=== PATIENT | male | born 1975 | race African-American/Black ===

== ENCOUNTER 2016-12-21 16:38 | Emergency (ER) | payer MEDICAID ==
--- NOTE | 2016-12-21 17:09 | ER Document Report ---
ED Medical Screen (RME) - General Stated Complaint: BODYACHES Time seen by provider: 17:09 Mode of Arrival: Ambulatory Information source: Patient Notes: 41-year-old male that has been sick for several days with cough. Is complaining of a headache neck pain and back pain today he vomited once this morning. There is no diarrhea. no chest pain or SOB. I have greeted and performed a rapid initial assessment of this patient. A comprehensive ED assessment, evaluation of the patient, analysis of test results , and completion of the medical decision making process will be conducted by additional ED providers. TRAVEL OUTSIDE OF THE [place] IN LAST 30 DAYS: No - Related Data Allergies/Adverse Reactions: hydrocodone [Hydrocodone] Allergy (Verified 12/21/16 17:04) Past Medical History GI Medical History: Reports: Hx Crohn's Disease, Hx Ulcerative Colitis Musculoskeltal Medical History: Reports Hx Musculoskeletal Trauma - Ankle with ORIF and finger Traumatic Medical History: Reports: Hx Fractures - Finger and ankle Past Surgical History: Reports: Hx Abdominal Surgery, Hx Bowel Surgery - For Crohn's, Hx Orthopedic Surgery - ORIF to ankle - Immunizations Hx Diphtheria, Pertussis, Tetanus Vaccination: Yes Physical Exam - Vital signs Vitals: Temp Pulse Resp BP Pulse Ox 97.8 F 105 H 20 132/76 H 99 12/21/16 17:06 12/21/16 17:06 12/21/16 17:06 12/21/16 17:06 12/21/16 17:06 Course - Vital Signs Vital signs: Temp Pulse Resp BP Pulse Ox 97.8 F 105 H 20 132/76 H 99 12/21/16 17:06 12/21/16 17:06 12/21/16 17:06 12/21/16 17:06 12/21/16 17:06
[2016-12-21] MEDS ORDERED: ACETAMINOPHEN 325 MG TABLET PO ONE (17:10)
[2016-12-21] MEDS ORDERED: ONDANSETRON 4 MG TAB.RAPDIS PO ONE (17:10)
[2016-12-21 18:15] LABS: APPEARANCE,URINE SLIGHTLY-CLOUDY; BILIRUBIN,URINE NEGATIVE (NEGATIVE); GLUCOSE, URINE NEGATIVE (NEGATIVE); KETONES,URINE NEGATIVE (NEGATIVE); LEUKOCYTE ESTERASE,URINE SMALL (NEGATIVE); NITRITE,URINE NEGATIVE (NEGATIVE); PROTEIN,URINE 30 mg/dL (NEGATIVE); URINE SPECIFIC GRAVITY 1.032; UROBILINOGEN,URINE NEGATIVE mg/dL (<2.0)
[2016-12-21 19:17] LABS: ABSOLUTE BASOPHILS # (AUTO) 0.1 10^3/uL (0.0-0.2); ABSOLUTE LYMPHOCYTES (AUTO) 1.6 10^3/uL (0.5-4.7); ABSOLUTE MONOCYTES (AUTO) 1.2 10^3/uL (0.1-1.4); ABSOLUTE NEUT (AUTO) 7.8 10^3/uL (1.7-8.2); BASOPHILS % (AUTO) 1.2 % (0-2); EOSINOPHILS % (AUTO) 0.3 % (0-6); HEMATOCRIT 43.7 % (37.9-51.0); HEMOGLOBIN 14.4 g/dL (13.5-17.0); HGB HCT DIFFERENCE -0.5; LYMPHOCYTES % (AUTO) 14.9 % (13-45); MEAN CORPUSCULAR VOLUME 88 fl (80-97); MONOCYTES % (AUTO) 11.3 % (3-13); RED BLOOD COUNT 4.98 10^6/uL (4.35-5.55); RED CELL DISTRIBUTION WIDTH 17.3 % (11.5-14.0); SEGMENTED NEUTROPHILS % (AUTO) 72.3 % (42-78); WHITE BLOOD COUNT 10.7 10^3/uL (4.0-10.5)
[2016-12-21] MEDS ORDERED: KETOROLAC TROMETHAMINE INJ/PF 30 MG/1 ML SDV IV ONE (20:02)
[2016-12-21] MEDS ORDERED: NORMAL SALINE 1000 ML 2,000 ML IV ONE (20:02)
--- NOTE | 2016-12-21 20:03 | ER Document Report ---
ED General - General Chief Complaint: Vomiting Stated Complaint: BODYACHES Mode of Arrival: Ambulatory Notes: Patient is a 41-year-old male without past medical history who presents with 2 days of diffuse body aches, arthralgias, headache, and fever. Describes the symptoms as being severe and constant since onset. Notes he's had diarrhea and nausea. Multiple sick contacts with similar illness that have been apparently diagnosed with influenza. He has not done anything to treat his symptoms and nothing worsens the symptoms. He has not seen his primary care physician regarding today's concerns. He denies a recent history of similar symptoms in the past. Denies any weakness, numbness or confusion. Has been able tolerate oral intake without difficulty. Denies any neck pain. TRAVEL OUTSIDE OF THE [place] IN LAST 30 DAYS: No - Related Data Allergies/Adverse Reactions: hydrocodone [Hydrocodone] Allergy (Verified 12/21/16 17:04) Past Medical History - General Information source: Patient - Social History Smoking Status: Former Smoker Chew tobacco use (# tins/day): No Frequency of alcohol use: None Drug Abuse: None Family History: CAD Patient has suicidal ideation: No Patient has homicidal ideation: No Renal/ Medical History: Denies: Hx Peritoneal Dialysis GI Medical History: Reports: Hx Crohn's Disease, Hx Ulcerative Colitis Musculoskeltal Medical History: Reports Hx Musculoskeletal Trauma - Ankle with ORIF and finger Traumatic Medical History: Reports: Hx Fractures - Finger and ankle Past Surgical History: Reports: Hx Abdominal Surgery, Hx Bowel Surgery - For Crohn's, Hx Orthopedic Surgery - ORIF to ankle - Immunizations Hx Diphtheria, Pertussis, Tetanus Vaccination: Yes Review of Systems - Review of Systems Notes: Constitutional: Negative for fever. HENT: Negative for sore throat. Eyes: Negative for visual changes. Cardiovascular: Negative for chest pain. Respiratory: Negative for shortness of breath. Gastrointestinal: Negative for abdominal pain, positive for diarrhea and nausea Genitourinary: Negative for dysuria. Musculoskeletal: Positive for body aches Skin: Negative for rash. Neurological: Negative for headaches, weakness or numbness. 10 point ROS negative except as marked above and in HPI. Physical Exam - Vital signs Vitals: Temp Pulse Resp BP Pulse Ox 97.8 F 105 H 20 132/76 H 99 12/21/16 17:06 12/21/16 17:06 12/21/16 17:06 12/21/16 17:06 12/21/16 17:06 Interpretation: Tachycardic Notes: PHYSICAL EXAMINATION: GENERAL: Appears mildly uncomfortable but in no acute distress HEAD: Atraumatic, normocephalic. EYES: Pupils equal round and reactive to light, extraocular movements intact, sclera anicteric, conjunctiva are normal. ENT: nares patent, oropharynx clear without exudates. Dry mucous membranes. NECK: Normal range of motion, supple without lymphadenopathy LUNGS: Breath sounds clear to auscultation bilaterally and equal. No wheezes rales or rhonchi. HEART: Regular tachycardia without murmurs ABDOMEN: Soft, nontender, normoactive bowel sounds. No guarding, no rebound. No masses appreciated. EXTREMITIES: Normal range of motion, no pitting or edema. No cyanosis. NEUROLOGICAL: No focal neurological deficits. Moves all extremities spontaneously and on command. PSYCH: Normal mood, normal affect. SKIN: Warm, Dry, normal turgor, no rashes or lesions noted. Course - Re-evaluation Re-evalutation: 12/21/16 20:02 Patient presents with cough, vomiting, diarrhea, and fever at home consistent with a diagnosis of a viral infection possibly influenza. Patient is overall well in appearance, in no acute distress. Lung sounds clear. Able to tolerate oral intake without difficulty here in the emergency department. Do not suspect an acute pneumonia, meningitis, strep pharyngitis, or any other acute life-threatening pathology based on reassuring evaluation, history and vitals. After risks and benefits conversation with the patient regarding the use of Tamiflu, they have elected to use supportive care without Tamiflu formal influenza testing based on concerns about lack of efficacy as well as the side effect profile. At this time will discharge with return precautions and follow- up recommendations. Verbal discharge instructions given a the bedside and opportunity for questions given. Medication warnings reviewed. Patient is in agreement with this plan and has verbalized understanding of return precautions and the need for primary care follow-up in the next 24-72 hours. Of note, patient did have pyuria but I'm uncertain as to why a urinalysis is obtained in triage patient denies any dysuria or flank pain to suggest a urinary tract infection. Will therefore not treat. - Vital Signs Vital signs: Temp Pulse Resp BP Pulse Ox 97.8 F 84 20 118/68 100 12/22/16 00:44 12/22/16 00:44 12/22/16 00:44 12/22/16 00:44 12/22/16 00:44 - Laboratory Result Diagrams: 12/21/16 18:52 12/21/16 21:21 Laboratory results interpreted by me: 12/21/16 12/21/16 12/21/16 17:54 18:52 21:21 WBC 10.7 H RDW 17.3 H Chloride 108 H Urine Protein 30 H Ur Leukocyte Esterase SMALL H Urine Ascorbic Acid 40 H Discharge - Discharge Clinical Impression: Myalgia, Cough Condition: Good Disposition: HOME, SELF-CARE Additional Instructions: Your symptoms are most consistent with the flu. There is no treatment that is effective for this diagnosis other than supportive care at home. This includes drinking plenty of fluids, using Tylenol or ibuprofen as needed for fever and discomfort, and Zofran as needed for nausea and vomiting. Please follow closely with you primary care physician the next 1-2 days regarding this diagnosis. Return to the emergency department immediately if you began to have persistent vomiting prevents you from being able to keep fluids down for more than 12 hours, you pass out, you began having difficulty breathing, you become confused, or you have any other symptoms that are worrisome to you. Referrals: FILIBERTO GARCIA MD [Primary Care Provider] - Follow up in 3-5 days
[2016-12-21 21:47] LABS: ALANINE AMINOTRANSFERASE 44 U/L (21-72); ALBUMIN 4.1 g/dL (3.5-5.0); ALKALINE PHOSPHATASE 74 U/L (38-126); ANION GAP 9 (5-19); ASPARTATE AMINO TRANSFERASE 19 U/L (17-59); BILIRUBIN,TOTAL 0.7 mg/dL (0.2-1.3); BLOOD UREA NITROGEN 14 mg/dL (7-20); CALCIUM 9.2 mg/dL (8.4-10.2); CARBON DIOXIDE 23 mmol/L (22-30); CHLORIDE 108 mmol/L (98-107); CREATININE RESULT 1.21 mg/dL (0.52-1.25); GLUCOSE 96 mg/dL (75-110); POTASSIUM 3.8 mmol/L (3.6-5.0); SODIUM 140.4 mmol/L (137-145); TOTAL PROTEIN 7.4 g/dL (6.3-8.2)
[2016-12-21] MEDS ORDERED: OXYCODONE HCL IR 5 MG TABLET PO ONE (22:31)
[2016-12-22] MEDS ORDERED: ONDANSETRON ODT 4 MG TAB (6 TAB/DSPK) PO PRN (00:15)
[2016-12-22 00:46] VITALS: BP 118/68
== END 2016-12-22 00:22 | disposition home or self-care (01) ==
LOC: ER 16:38
DX: M79.1 Myalgia (principal); R05 Cough; R11.10 Vomiting, unspecified; R51 Headache; R50.9 Fever, unspecified; Z88.6 Allergy status to analgesic agent; Z87.891 Personal history of nicotine dependence
CPT/HCPCS: 99284; 96374; 36415; 83690; 85025; 80053; 81001; J3490 ×2; S0119; J1885

== ENCOUNTER 2017-02-18 11:20 | Emergency (ER) | payer MEDICAID ==
[2017-02-18] MEDS ORDERED: ONDANSETRON 4 MG TAB.RAPDIS SL ONE (12:21)
[2017-02-18] MEDS ORDERED: OXYCODONE-ACETAMINOPHEN 5-325 MG TABLET PO ONE (12:21)
--- NOTE | 2017-02-18 12:21 | ER Document Report ---
ED Medical Screen (RME) - General Chief Complaint: Abdominal Pain Stated Complaint: ABDOMINAL PAIN, LEFT KNEE PAIN TRAVEL OUTSIDE OF THE [place] IN LAST 30 DAYS: No - HPI Patient complains to provider of: abdominal pain, left knee pain Onset: Other - pain to right abdomen x 3 days, no nausea, vomiting, no fever/ chill, h/o crohns with colostomy x 1.5 years, [facility] Thompson pain to left knee 2-3 days, possible injury, swelling pain, hurts to walk or with movement Onset/Duration: Gradual Quality of pain: Achy Severity: Moderate Pain Level: 4 Associated Symptoms: Nausea, Other - lightheaded. denies: Diarrhea, Vomiting Exacerbated by: Movement Relieved by: Denies Similar symptoms previously: Yes Recently seen / treated by doctor: No - Related Data Smoking: Quit less than 1 year Allergies/Adverse Reactions: hydrocodone [Hydrocodone] Allergy (Verified 02/18/17 11:27) Past Medical History Renal/ Medical History: Denies: Hx Peritoneal Dialysis GI Medical History: Reports: Hx Crohn's Disease, Hx Ulcerative Colitis Musculoskeltal Medical History: Reports Hx Musculoskeletal Trauma - Ankle with ORIF and finger Traumatic Medical History: Reports: Hx Fractures - Finger and ankle Past Surgical History: Reports: Hx Abdominal Surgery, Hx Bowel Surgery - For Crohn's, Hx Orthopedic Surgery - ORIF to ankle - Immunizations Hx Diphtheria, Pertussis, Tetanus Vaccination: Yes Physical Exam - Vital signs Vitals: Temp Pulse Resp BP Pulse Ox 98.4 F 83 18 114/66 98 02/18/17 11:28 02/18/17 11:28 02/18/17 11:28 02/18/17 11:28 02/18/17 11:28 Course - Vital Signs Vital signs: Temp Pulse Resp BP Pulse Ox 98.4 F 83 18 114/66 98 02/18/17 11:28 02/18/17 11:28 02/18/17 11:28 02/18/17 11:28 02/18/17 11:28
[2017-02-18 12:50] LABS: ABSOLUTE BASOPHILS # (AUTO) 0.1 10^3/uL (0.0-0.2); ABSOLUTE EOSINOPHILS # (AUTO) 0.4 10^3/uL (0.0-0.6); ABSOLUTE LYMPHOCYTES (AUTO) 1.9 10^3/uL (0.5-4.7); ABSOLUTE MONOCYTES (AUTO) 1.3 10^3/uL (0.1-1.4); ABSOLUTE NEUT (AUTO) 5.1 10^3/uL (1.7-8.2); BASOPHILS % (AUTO) 0.8 % (0-2); EOSINOPHILS % (AUTO) 4.1 % (0-6); HEMOGLOBIN 14.6 g/dL (13.5-17.0); HGB HCT DIFFERENCE -1.2; LYMPHOCYTES % (AUTO) 21.8 % (13-45); MEAN CORPUSCULAR HEMOGLOBIN 28.9 pg (27.0-33.4); MEAN CORPUSCULAR HGB CONC 32.5 g/dL (32.0-36.0); MEAN CORPUSCULAR VOLUME 89 fl (80-97); MONOCYTES % (AUTO) 14.7 % (3-13); RED BLOOD COUNT 5.05 10^6/uL (4.35-5.55); SEGMENTED NEUTROPHILS % (AUTO) 58.6 % (42-78); WHITE BLOOD COUNT 8.6 10^3/uL (4.0-10.5)
[2017-02-18 12:54] LABS: APPEARANCE,URINE CLEAR; BILIRUBIN,URINE NEGATIVE (NEGATIVE); GLUCOSE, URINE NEGATIVE (NEGATIVE); KETONES,URINE NEGATIVE (NEGATIVE); LEUKOCYTE ESTERASE,URINE NEGATIVE (NEGATIVE); NITRITE,URINE NEGATIVE (NEGATIVE); PROTEIN,URINE NEGATIVE (NEGATIVE); URINE SPECIFIC GRAVITY 1.016; UROBILINOGEN,URINE NEGATIVE mg/dL (<2.0)
[2017-02-18 13:04] LABS: ALANINE AMINOTRANSFERASE 44 U/L (21-72); ALBUMIN 4.3 g/dL (3.5-5.0); ALKALINE PHOSPHATASE 74 U/L (38-126); ANION GAP 13 (5-19); ASPARTATE AMINO TRANSFERASE 25 U/L (17-59); BILIRUBIN,DIRECT 0.3 mg/dL (0.0-0.4); BILIRUBIN,TOTAL 0.7 mg/dL (0.2-1.3); BLOOD UREA NITROGEN 12 mg/dL (7-20); CALCIUM 9.6 mg/dL (8.4-10.2); CARBON DIOXIDE 23 mmol/L (22-30); CHLORIDE 106 mmol/L (98-107); CREATININE RESULT 1.01 mg/dL (0.52-1.25); GLUCOSE 100 mg/dL (75-110); LIPASE 49.6 U/L (23-300); POTASSIUM 4.6 mmol/L (3.6-5.0); SODIUM 141.7 mmol/L (137-145)
--- NOTE | 2017-02-18 14:35 | ER Document Report ---
ED GI/ - General Chief Complaint: Abdominal Pain Stated Complaint: ABDOMINAL PAIN, LEFT KNEE PAIN Time seen by provider: 14:25 Mode of Arrival: Ambulatory Information source: Patient Notes: 41-year-old male presents to ED for right abdominal pain since Friday and left knee pain since Friday. He has a history of Crohn's and ulcerative colitis. He states he bumped his knee getting out of bed on Friday. He states he did have a primary doctor Dr. Abreu in [place] but he has not been there in several months. He has a colostomy for the last 1-1/2 years. TRAVEL OUTSIDE OF THE [place] IN LAST 30 DAYS: No - HPI Patient complains to provider of: Abdominal pain, Other - Left knee pain Onset: Other - See above Timing/Duration: Gradual Quality of pain: Sharp, Throbbing - To the knee Severity at maximum: Moderate Severity in ED: Moderate Pain Level: 3 Location: Other - Generalized Associated symptoms: Other - Left knee pain Exacerbated by: Movement, Walking Relieved by: Denies Similar symptoms previously: Yes Recently seen / treated by doctor: No - Related Data Allergies/Adverse Reactions: hydrocodone [Hydrocodone] Allergy (Verified 02/18/17 11:27) Past Medical History - General Information source: Patient - Social History Smoking Status: Former Smoker Chew tobacco use (# tins/day): No Frequency of alcohol use: Rare Drug Abuse: None Lives with: Alone Family History: CAD Patient has suicidal ideation: No Patient has homicidal ideation: No - Past Medical History Cardiac Medical History: Reports: None Pulmonary Medical History: Reports: None EENT Medical History: Reports: None Neurological Medical History: Reports: None Endocrine Medical History: Reports: None Renal/ Medical History: Reports: None Malignancy Medical History: Reports None GI Medical History: Reports: Hx Crohn's Disease, Hx Ulcerative Colitis Musculoskeltal Medical History: Reports Hx Musculoskeletal Trauma - Ankle with ORIF and finger Skin Medical History: Reports None Psychiatric Medical History: Reports: None Traumatic Medical History: Reports: Hx Fractures - Finger and ankle Infectious Medical History: Reports: None Past Surgical History: Reports: Hx Abdominal Surgery, Hx Bowel Surgery - For Crohn's, Hx Orthopedic Surgery - ORIF to ankle - Immunizations Hx Diphtheria, Pertussis, Tetanus Vaccination: Yes Review of Systems - Review of Systems Constitutional: No symptoms reported EENT: No symptoms reported Cardiovascular: No symptoms reported Respiratory: No symptoms reported Gastrointestinal: Abdominal pain Genitourinary: No symptoms reported Male Genitourinary: No symptoms reported Musculoskeletal: Other - Left knee pain Skin: No symptoms reported Hematologic/Lymphatic: No symptoms reported Neurological/Psychological: No symptoms reported -: Yes All other systems reviewed and negative Physical Exam - Vital signs Vitals: Temp Pulse Resp BP Pulse Ox 98.4 F 83 18 114/66 98 02/18/17 11:28 02/18/17 11:28 02/18/17 11:28 02/18/17 11:28 02/18/17 11:28 Interpretation: Normal - General General appearance: Appears well, Alert - HEENT Head: Normocephalic, Atraumatic Eyes: Normal Pupils: PERRL - Respiratory Respiratory status: No respiratory distress Chest status: Nontender Breath sounds: Normal Chest palpation: Normal - Cardiovascular Rhythm: Regular Heart sounds: Normal auscultation Murmur: No - Abdominal Inspection: Normal Distension: No distension Bowel sounds: Normal Tenderness: Tender, Other - Colostomy Organomegaly: No organomegaly - Back Back: Normal, Nontender - Extremities General upper extremity: Normal inspection, Nontender, Normal color, Normal ROM , Normal temperature General lower extremity: Normal inspection, Normal color, Normal temperature. No: Krys's sign Knee: Tender, Pain with ROM Calf: Normal, Nontender Ankle: Normal, Nontender - Neurological Neuro grossly intact: Yes Cognition: Normal Orientation: AAOx4 [place] Coma Scale Eye Opening: Spontaneous [place] Coma Scale Verbal: Oriented [place] Coma Scale Motor: Obeys Commands [place] Coma Scale Total: 15 Speech: Normal Motor strength normal: LUE, RUE, LLE, RLE Sensory: Normal - Psychological Associated symptoms: Normal affect, Normal mood - Skin Skin Temperature: Warm Skin Moisture: Dry Skin Color: Normal Course - Vital Signs Vital signs: Temp Pulse Resp BP Pulse Ox 97.7 F 75 18 107/60 96 02/18/17 16:07 02/18/17 16:07 02/18/17 16:07 02/18/17 16:07 02/18/17 16:07 - Laboratory Result Diagrams: 02/18/17 12:10 02/18/17 12:10 Laboratory results interpreted by me: 02/18/17 02/18/17 12:10 12:10 RDW 17.0 H Monocytes % 14.7 H Urine Ascorbic Acid 40 H - Diagnostic Test Radiology reviewed: Image reviewed, Reports reviewed Discharge - Discharge Clinical Impression: Abdominal pain in male, Hx of Crohn's disease Condition: Stable Disposition: HOME, SELF-CARE Additional Instructions: ABDOMINAL PAIN: There are many causes of abdominal pain. Pain can mean a serious problem requiring surgery (such as appendicitis). It can also be an innocent problem that goes away on its own (such as a viral infection). Often, time must pass to determine the cause of pain. The physician does not feel that hospitalization is necessary, at present. Things may change within the next 24 hours. Call the doctor or come back for re- examination if any problems occur, such as: (1) Pain that becomes more severe, steady, or becomes concentrated in one specific area. Also, pain that is more severe with movement or coughing. (2) Vomiting that persists or becomes more frequent. (3) Blood in the vomitus, urine, or bowel movements. Blood in the stool may have a tarry or black appearance. (4) Shaking chills or fever greater than 100 degrees F. (5) The abdomen becomes more distended or swollen. (6) Bowel movements cease. (7) Failure to improve as expected. NORMAL EXAM AND WORKUP: At this time, your examination and workup show no significant abnormality. No significant abnormal physical findings are noted. All laboratory, EKG, and imaging (x-ray, CT scans, ultrasound) studies that were ordered show no significant abnormality. Although your examination and all studies that were ordered showed no significant abnormal finding, there are no examinations and no studies that are 100% accurate. There is always the possibility that some abnormality could exist and not be detected with physical examination or within the limits and capabilities of laboratory and other studies. You should return or follow up as you were instructed on your visit today for further evaluation if your symptoms do not resolve. CONTUSION: Your injury has resulted in a contusion -- a crushing of the deep tissues. No injury to important structures was detected during the physician's exam. Contusions vary in the amount of pain they cause, and in the length of time required for healing. Typically, the area will become bruised, and will remain painful to touch for two or three weeks. However, most patients are back to working and playing within a few days. After the initial period of rest and cold-packs, your symptoms (together with the doctor's recommendations) will determine how rapidly you can get back to full activity. Usually this means "do what feels okay, but don't do things that hurt." If re-examination was recommended, it's important to follow up as instructed. Call the doctor or return any time if pain increases, if swelling becomes severe, if you develop numbness or weakness in an injured extremity, or if any other alarming symptoms occur. Ice & Elevation Apply ice packs frequently against the painful area. Many different schedules are recommended, such as "20 minutes on, 20 minutes off" or "one hour ice, two hours rest." If you need to work, you may need to go longer between ice treatments. You should plan to have the area ice packed AT LEAST one- fourth of the time. The ice should be applied over the wrap, tape, or splint, or over a layer of cloth -- not directly against the skin. Some ice bags have a built-in cloth and can be put directly on the skin. Your injured part should be elevated as much as possible over the next 48 hours. Try to keep the injury above the level of the heart. Avoid use of the injured area. Elevation and rest will decrease the swelling. ORAL NARCOTIC MEDICATION: You have been given a prescription for pain control. This medication is a narcotic. It's best taken with food, as nausea can result if taken on an empty stomach. Don't operate machinery or drive within six hours of taking this medication. Do not combine this medicine with alcohol, or with any medication which can cause sedation (such as cold tablets or sleeping pills) unless you get permission from the physician. Narcotics tend to cause constipation. If possible, drink plenty of fluids and eat a diet high in fiber and fruits. Please be aware that prescription narcotics also have the potential for abuse. People become addicted to these medications because of the general sense of wellbeing that they induce. This feeling along with a significant reduction in tension, anxiety, and aggression provides a stimulating seductive quality to these drugs. Once your pain is under control, we encourage you to discard your unused narcotics. Chronic Pain Control Stress, inactivity, and depression make pain more severe regardless of the cause of the pain. Stress and poor physical condition can cause pain such as headaches and backache. Relaxation: Rest in a quiet place with your eyes closed for 20 minutes twice daily. Concentrate on a pleasant image, or simply "feel" your breathing. Clear your mind. Stress management: Deal with your "stressors." Either take action, or eliminate the stressor from your life. Don't let things hang over you. Accept those things you can't change. Nutrition: Eat small, balanced meals -- don't skip, don't overeat. Meals should be high-carbohydrate, low-sugar, low-fat. Exercise: Exercise helps painful conditions and eases stress. Get 30 minutes of moderate exercise, five days a week. Do an activity that does not flare your pain. Precautions: Pain which continues to disrupt daily activities, or which changes in nature, requires a medical evaluation. Pain Clinic referral is available. We do not manage chronic pain in the Emergency Department. We will try to appropriately help you through an acute flare of your chronic painful condition , but for on-going chronic pain that does not improve, you will need to see your private doctor or sign writer letterer or painter. We do not provide repeated medication management of chronic painful conditions. If you wish, we can provide the name of local pain management physicians. FOLLOW-UP CARE: If you have been referred to a physician for follow-up care, call the physician s office for an appointment as you were instructed or within the next two days. If you experience worsening or a significant change in your symptoms, notify the physician immediately or return to the Emergency Department at any time for re-evaluation. Prescriptions: Oxycodone HCl/Acetaminophen [Percocet 5-325 mg Tablet] 1 tab PO Q6HP PRN #10 tablet PRN Reason: Referrals: FILIBERTO ABREU MD [Primary Care Provider] - Follow up as needed
[2017-02-18 16:08] VITALS: BP 107/60
== END 2017-02-18 16:10 | disposition home or self-care (01) ==
LOC: ER 11:20
DX: K50.90 Crohn's disease, unspecified, without complications (principal); M25.562 Pain in left knee; W22.01XA Walked into wall, initial encounter; Y93.89 Activity, other specified; Z93.3 Colostomy status; Z88.5 Allergy status to narcotic agent; Z87.891 Personal history of nicotine dependence
CPT/HCPCS: 99284; 36415; 87086; 83690; 85025; 80053; 81001; 74022; 73562; S0119

== ENCOUNTER 2017-12-11 12:17 | Emergency (ER) | payer MEDICAID, OTHER ==
[2017-12-11] MEDS ORDERED: NORMAL SALINE 1000 ML 1,000 ML IV ONE (14:03)
--- NOTE | 2017-12-11 14:05 | ER Document Report ---
ED General - General Chief Complaint: Abdominal Pain Stated Complaint: ABDOMINAL PAIN Time Seen by Provider: 12/11/17 13:54 Mode of Arrival: Ambulatory Information source: Patient Notes: 42-year-old male history of Crohn's disease presents with complaints of right- sided abdominal pain. Patient denies any fevers or chills notes pains been ongoing for 3 days, notes he ran out of colostomy bags for replacements 2 days ago Patient denies any fevers or chills I have greeted and performed a rapid initial assessment of this patient. A comprehensive ED assessment and evaluation of the patient, analysis of test results and completion of the medical decision making process will be conducted by additional ED providers. PHYSICAL EXAMINATION: GENERAL: Well-appearing, well-nourished and in no acute distress. HEAD: Atraumatic, normocephalic. EYES: Pupils equal round extraocular movements intact, conjunctiva are normal. ENT: Nares patent NECK: Normal range of motion LUNGS: No respiratory distress Musculoskeletal: Normal range of motion, ostomy noted NEUROLOGICAL: Normal speech, normal gait. PSYCH: Normal mood, normal affect. SKIN: Warm, Dry, normal turgor, no rashes or lesions noted. TRAVEL OUTSIDE OF THE [place] IN LAST 30 DAYS: No - Related Data Allergies/Adverse Reactions: hydrocodone [Hydrocodone] Allergy (Verified 12/11/17 12:19) Past Medical History - Social History Smoking Status: Former Smoker Frequency of alcohol use: None Drug Abuse: None Family History: CAD Patient has suicidal ideation: No Patient has homicidal ideation: No Renal/ Medical History: Denies: Hx Peritoneal Dialysis GI Medical History: Reports: Hx Crohn's Disease, Hx Ulcerative Colitis Musculoskeltal Medical History: Reports Hx Musculoskeletal Trauma - Ankle with ORIF and finger Traumatic Medical History: Reports: Hx Fractures - Finger and ankle Past Surgical History: Reports: Hx Abdominal Surgery, Hx Bowel Surgery - For Crohn's, Hx Orthopedic Surgery - ORIF to ankle - Immunizations Hx Diphtheria, Pertussis, Tetanus Vaccination: Yes Physical Exam - Vital signs Vitals: Temp Pulse Resp BP Pulse Ox 97.9 F 76 16 103/60 100 12/11/17 12:36 12/11/17 12:36 12/11/17 12:36 12/11/17 12:36 12/11/17 12:36 Course - Vital Signs Vital signs: Temp Pulse Resp BP Pulse Ox 97.9 F 76 16 103/60 100 12/11/17 12:36 12/11/17 12:36 12/11/17 12:36 12/11/17 12:36 12/11/17 12:36
[2017-12-11 14:47] LABS: ABSOLUTE BASOPHILS # (AUTO) 0.1 10^3/uL (0.0-0.2); ABSOLUTE EOSINOPHILS # (AUTO) 0.3 10^3/uL (0.0-0.6); ABSOLUTE LYMPHOCYTES (AUTO) 1.6 10^3/uL (0.5-4.7); ABSOLUTE MONOCYTES (AUTO) 0.8 10^3/uL (0.1-1.4); ABSOLUTE NEUT (AUTO) 3.7 10^3/uL (1.7-8.2); BASOPHILS % (AUTO) 0.8 % (0-2); EOSINOPHILS % (AUTO) 4.6 % (0-6); HEMATOCRIT 48.9 % (37.9-51.0); HEMOGLOBIN 15.9 g/dL (13.5-17.0); LYMPHOCYTES % (AUTO) 25.1 % (13-45); MEAN CORPUSCULAR HGB CONC 32.6 g/dL (32.0-36.0); MEAN CORPUSCULAR VOLUME 92 fl (80-97); MONOCYTES % (AUTO) 12.1 % (3-13); PLATELET COUNT 273 10^3/uL (150-450); RED BLOOD COUNT 5.32 10^6/uL (4.35-5.55); RED CELL DISTRIBUTION WIDTH 16.8 % (11.5-14.0); SEGMENTED NEUTROPHILS % (AUTO) 57.4 % (42-78); TOTAL CELLS COUNTED % (AUTO) 100 %; WHITE BLOOD COUNT 6.4 10^3/uL (4.0-10.5)
[2017-12-11 16:03] LABS: ALANINE AMINOTRANSFERASE 26 U/L (21-72); ALKALINE PHOSPHATASE 64 U/L (38-126); ANION GAP 6 (5-19); ASPARTATE AMINO TRANSFERASE 16 U/L (17-59); BILIRUBIN,DIRECT 0.2 mg/dL (0.0-0.4); BILIRUBIN,TOTAL 0.5 mg/dL (0.2-1.3); BLOOD UREA NITROGEN 12 mg/dL (7-20); CALCIUM 9.5 mg/dL (8.4-10.2); CARBON DIOXIDE 28 mmol/L (22-30); CHLORIDE 109 mmol/L (98-107); GLUCOSE 84 mg/dL (75-110); LIPASE 306.3 U/L (23-300); POTASSIUM 5.1 mmol/L (3.6-5.0); TOTAL PROTEIN 6.6 g/dL (6.3-8.2)
--- NOTE | 2017-12-11 16:07 | ER Document Report ---
ED General - General Chief Complaint: Abdominal Pain Stated Complaint: ABDOMINAL PAIN Time Seen by Provider: 12/11/17 13:54 Mode of Arrival: Ambulatory Notes: Patient is a 42-year-old male who comes in complaining of abdominal pain for 2 days. Described as generalized abdominal discomfort with intermittent nausea without vomiting. Has been eating without difficulty. Denies diarrhea, constipation. The patient has history of Crohn's disease and had an ileostomy done about two years ago at [facility] and last saw them approx. one ye ar ago with Dr Abreu. He denies any fevers. Patient denies any drug or alcohol use. No chest pain. No coughing or shortness of breath. TRAVEL OUTSIDE OF THE [place] IN LAST 30 DAYS: No - Related Data Allergies/Adverse Reactions: hydrocodone [Hydrocodone] Allergy (Verified 12/11/17 12:19) Past Medical History - General Information source: Patient - Social History Smoking Status: Former Smoker Frequency of alcohol use: None Drug Abuse: None Family History: CAD Patient has suicidal ideation: No Patient has homicidal ideation: No Renal/ Medical History: Denies: Hx Peritoneal Dialysis GI Medical History: Reports: Hx Crohn's Disease, Hx Ulcerative Colitis Musculoskeltal Medical History: Reports Hx Musculoskeletal Trauma - Ankle with ORIF and finger Traumatic Medical History: Reports: Hx Fractures - Finger and ankle Past Surgical History: Reports: Hx Abdominal Surgery, Hx Bowel Surgery - For Crohn's, Hx Orthopedic Surgery - ORIF to ankle - Immunizations Hx Diphtheria, Pertussis, Tetanus Vaccination: Yes Review of Systems - Review of Systems Constitutional: No symptoms reported EENT: No symptoms reported Cardiovascular: No symptoms reported Respiratory: No symptoms reported Gastrointestinal: See HPI - Patient presents with multiple vague complaints that did not appear to be concerning for any acute life-threatening pathology. Vitals are within normal limits at triage and at time of discharge. Physical examination is unremarkable. Patient has tolerated oral intake without difficulty. Patient was not noted to be in distress at any point during their ER visit. At this time, based on the reassuring evaluation, I do not suspect an acute FL, pulmonary embolus, aortic dissection, acute intra-abdominal pathology, stroke, or sepsis.Will discharge with return precautions and follow- up recommendations. Verbal discharge instructions given a the bedside and opportunity for questions given. Medication warnings reviewed. Patient is in agreement with this plan and has verbalized understanding of return precautions and the need for primary care follow-up in the next 24-72 hours. Skin: No symptoms reported Neurological/Psychological: No symptoms reported -: Yes All other systems reviewed and negative Physical Exam - Vital signs Vitals: Temp Pulse Resp BP Pulse Ox 97.9 F 76 16 103/60 100 12/11/17 12:36 12/11/17 12:36 12/11/17 12:36 12/11/17 12:36 12/11/17 12:36 - Notes Notes: PHYSICAL EXAM GENERAL: Alert, interacts well. HEAD: Normocephalic, atraumatic. EYES: Pupils equal, round, and reactive to light. Extraocular movements intact. ENT: Oral mucosa moist, tongue midline. NECK: Full range of motion. Supple. Trachea midline. LUNGS: Clear to auscultation bilaterally, no wheezes, rales, or rhonchi. No respiratory distress. HEART: Regular rate and rhythm. No murmurs, gallops, or rubs. ABDOMEN: Soft, nondistended, mild diffuse tenderness. No guarding, rebound, or rigidity.. Bowel sounds present in all 4 quadrants. EXTREMITIES: Moves all 4 extremities spontaneously. No edema, radial and dorsalis pedis pulses 2/4 bilaterally. No cyanosis. NEUROLOGICAL: Alert and oriented x4. Normal speech. PSYCH: Normal affect, normal mood. SKIN: Warm, dry, normal turgor. No rashes or lesions noted. Course - Re-evaluation Re-evalutation: 12/11/17 16:19 Patient is a 42-year-old male who is hemodynamically stable, no acute distress and afebrile. CBC stable without evidence of leukocytosis or anemia. Chemistry stable without any evidence of mass, elevated liver function, acute renal failure. Mild elevation in lipase but nothing significant or concerning for pancreatitis. CT the abdomen and pelvis with IV contrast shows mild thickening of the jejunum without any rounding signs of inflammation such as free fluid or fat stranding. 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 Thompson who was on-call at [facility] use who recommends discharging the patient home on 5 days of 50 mg prednisone and minimal pain medication with instruction to follow-up with him next week. Patient is agreeable with plan and stable for discharge home. - Vital Signs Vital signs: Temp Pulse Resp BP Pulse Ox 97.9 F 76 16 103/60 100 12/11/17 12:36 12/11/17 12:36 12/11/17 12:36 12/11/17 12:36 12/11/17 12:36 - Laboratory Result Diagrams: 12/11/17 14:31 12/11/17 15:25 Laboratory results interpreted by me: 12/11/17 12/11/17 14:31 15:25 RDW 16.8 H Potassium 5.1 H Chloride 109 H AST 16 L Lipase 306.3 H - Diagnostic Test Radiology reviewed: Image reviewed, Reports reviewed Discharge - Discharge Clinical Impression: Abdominal pain Qualifiers: Abdominal location: generalized Qualified Code(s): R10.84 - Generalized abdominal pain Condition: Good Disposition: HOME, SELF-CARE Additional Instructions: Your symptoms today are consistent with a mild flare of her Crohn's disease. He will be discharged home with instruction to take 50 mg of prednisone 1 tablet a day for [address] Thompson's office [phone] to review how you are feeling after you complete this medication. Felipe Torres return to the emergency department with any worsening abdominal pain, blood in your stool, fever, weakness or any symptoms that are worrisome to you. Please follow up with Dr Abreu in one week Crohn's Disease Crohn's disease is an inflammatory disease of the intestines, affecting both the large and small intestine. The cause is unknown. Often there is vague abdominal pain and diarrhea for years before the diagnosis is made. The disease causes spotty thickening and inflammation of the bowel wall. With Crohn's disease, rectal fissures and abscesses are common. So is perforation of the bowel and internal abscess. The disease tends to flare spontaneously, then quiet down again. It never goes away completely. There is no cure for Crohn's disease. Acute flare-ups can be treated with steroids (such as prednisone), sometimes in combination with other medicines. Antibiotics (usually metronidazole) are often helpful. Sulfasalazine can ease the inflammation during flare-ups. Antidiarrhea medicine is taken as needed. Surgery may be needed for intestinal blockage, perforation, or hemorrhage. But surgery doesn't cure the disease -- it comes back in other places. Crohn's disease can cause immune disease in other body parts. Some patients will develop eye inflammation, arthritis, stiffened spine, liver inflammation, or skin disease. Kidney stones are more common in Crohn's patients. Lactose intolerance is common. There is a significant risk of developing a bowel tumor. Call the doctor if you have increasing abdominal pain, repeated vomiting, fever, rectal bleeding, or worsening diarrhea. Prescriptions: Oxycodone HCl/Acetaminophen [Percocet 5-325 mg Tablet] 1 tab PO Q6HP PRN #6 tab PRN Reason: Prednisone 50 mg PO DAILY #5 tablet
[2017-12-11] MEDS ORDERED: KETOROLAC TROMETHAMINE INJ/PF 30 MG/1 ML SDV IV ONE (16:56)
--- NOTE | 2017-12-11 17:13 | RADIOLOGY REPORT (SQ) ---
EXAM DESCRIPTION: CT ABD/PELVIS WITH IV ONLY COMPLETED DATE/TIME: 12/11/2017 4:52 pm REASON FOR STUDY: abdominal pain, h/o chrons, RLQ ostomy COMPARISON: Abdomen films dated February 2017 and abdominal ultrasound dated September 2006 TECHNIQUE: CT scan of the abdomen and pelvis performed using helical scanning technique with dynamic intravenous contrast injection. No oral contrast. Images reviewed with lung, soft tissue, and bone windows. Reconstructed coronal and sagittal MPR images reviewed. Delayed images for evaluation of the urinary system also acquired. All images stored on PACS. All CT scanners at this facility use dose modulation, iterative reconstruction, and/or weight based d osing when appropriate to reduce radiation dose to as low as reasonably achievable (ALARA). [facility]: Dose Right [facility]: CareDose [facility]: Dose Right [facility]: Teradose 4D [facility]: Privlo CONTRAST TYPE AND DOSE: contrast/concentration: Isovue 370.00 mg/ml; Total Contrast Delivered: 100.0 ml; Total Saline Delivered: 60.0 ml RENAL FUNCTION: Creatinine 1.03 RADIATION DOSE: CT Rad equipment meets quality standard of care and radiation dose reduction techniq ues were employed. CTDIvol: 12.0 - 15.9 mGy. DLP: 1409 mGy-cm.. LIMITATIONS: None. FINDINGS: LOWER CHEST: No significant findings. No nodules or infiltrates. LIVER: Normal size. No masses. No dilated ducts. There is fatty infiltration of the liver. SPLEEN: Normal size. No focal lesions. PANCREAS: No masses. No significant calcifications. No adjacent inflammation or peripancreatic fluid collections. Pancreatic duct not dilated. GALLBLADDER: No identified stones by CT criteria. No inflammatory changes to suggest cholecystitis. ADRENAL GLANDS: No significant masses or asymmetry. RIGHT KIDNEY AND URETER: No solid masses. No significant calcifications. No hydronephrosis or hyd roureter. LEFT KIDNEY AND URETER: No solid masses. No significant calcifications. No hydronephrosis or hydr oureter. AORTA AND VESSELS: No aneurysm. No dissection. Renal arteries, SMA, celiac without stenosis. RETROPERITONEUM: No retroperitoneal adenopathy, hemorrhage or masses. BOWEL AND PERITONEAL CAVITY: Patient is status post subtotal colectomy with an ostomy being identifie d in the right lower quadrant. There is some herniation of bowel into the subcutaneous fat at the le brigid of the ostomy without holdup or obstruction. There is some mild thickening of the paula of sever al loops of jejunum in the left abdomen presumably related to its non distended state however the pos sibility of involvement by the patient's known Crohn's disease cannot be completely excluded. APPENDIX: Status post appendectomy PELVIS: No mass. No free fluid. Normal bladder. ABDOMINAL WALL: No masses. No hernias. BONES: No significant or acute findings. OTHER: No other significant finding. IMPRESSION: Patient is status post subtotal colectomy with an ostomy being identified in the right l ower quadrant. There is some herniation of bowel into the subcutaneous fat at the level of the ostom y without holdup or obstruction. There is some mild thickening of the paula of several loops of jeju num in the left abdomen presumably related to its non distended state however the possibility of invo lvement by the patient's known Crohn's disease cannot be completely excluded. Other findings as note d above TECHNICAL DOCUMENTATION: JOB ID: [id number] Quality ID # [id number]: Final reports with documentation of one or more dose reduction techniques (e.g., Au tomated exposure control, adjustment of the mA and/or kV according to patient size, use of iterative reconstruction technique) 2010 [employer]- All Rights Reserved
[2017-12-11 18:53] VITALS: BP 105/62
== END 2017-12-11 18:52 | disposition home or self-care (01) ==
LOC: ER 12:17
DX: R10.84 Generalized abdominal pain (principal); R10.817 Generalized abdominal tenderness; R11.0 Nausea; R74.8 Abnormal levels of other serum enzymes; Z87.19 Personal history of other diseases of the digestive system; Z90.49 Acquired absence of other specified parts of digestive tract; Z93.2 Ileostomy status; Z88.5 Allergy status to narcotic agent
CPT/HCPCS: 99284; 96361; 96374; 36415; 83690; 85025; 80053; 74177; J1885; J7030

== ENCOUNTER 2018-06-10 10:42 | Emergency (ER) | payer MEDICAID ==
[2018-06-10 10:53] VITALS: BP 106/65
[2018-06-10] MEDS ORDERED: OXYCODONE-ACETAMINOPHEN 5-325 MG TABLET PO ONE (11:08)
--- NOTE | 2018-06-10 11:30 | ER Document Report ---
ED GI/ - General Chief Complaint: Abdominal Pain Stated Complaint: ABDOMINAL PAIN Time Seen by Provider: 06/10/18 11:07 Mode of Arrival: Ambulatory Information source: Patient Notes: Chief complaint: Colostomy bag need to be change History of complain:( obtained from----patient) 42 years old male has run out of his colostomy bag which need to be changed therefore present to the ED. Also complained mild pain over the area of the colostomy bag. Otherwise has no constitutional symptoms. No nausea vomiting. Onset: Gradual Duration: Long-standing Severity: Mild Quality:dull Context: Has a colostomy bag Exacerbating factor and relieving factors: None REVIEW OF SYSTEMS: CONSTITUTIONAL : Denies fever, chills, or sweats. Denies recent illness. EENT: Denies eye, ear, throat, or mouth pain or symptoms. Denies nasal or sinus congestion or discharge. Denies throat, tongue, or mouth swelling or difficulty swallowing. CARDIOVASCULAR: Denies chest pain. Denies palpitations or racing or irregular heart beat. Denies ankle edema. RESPIRATORY: Denies cough, cold, or chest congestion. Denies shortness of breath, difficulty breathing, or wheezing. GASTROINTESTINAL: Denies distention. Denies nausea, vomiting, or diarrhea. Denies blood in vomitus, stools, or per rectum. Denies black, tarry stools. Denies constipation. GENITOURINARY: Denies difficulty urinating, painful urination, burning, frequency, blood in urine, or discharge. FEMALE GENITOURINARY: Denies vaginal bleeding, heavy or abnormal periods, irregular periods. Denies vaginal discharge or odor. MUSCULOSKELETAL: Denies back or neck pain or stiffness. Denies joint pain or swelling. SKIN: Denies rash, lesions or sores. HEMATOLOGIC : Denies easy bruising or bleeding. LYMPHATIC: Denies swollen, enlarged glands. NEUROLOGICAL: Denies confusion or altered mental status. Denies passing out or loss of consciousness. Denies dizziness or lightheadedness. Denies headache. Denies weakness or paralysis or loss of use of either side. Denies problems with gait or speech. Denies sensory loss, numbness, or tingling. Denies seizures. PSYCHIATRIC: Denies anxiety or stress. Denies depression, suicidal ideation, or homicidal ideation. ALL OTHER SYSTEMS REVIEWED AND NEGATIVE. PHYSICAL EXAMINATION: GENERAL: Well-appearing, well-nourished and in no acute distress. HEAD: Atraumatic, normocephalic. EYES: Pupils equal round and reactive to light, extraocular movements intact, conjunctiva are normal. ENT: Nares patent, oropharynx clear without exudates. Moist mucous membranes. NECK: Normal range of motion, supple without lymphadenopathy LUNGS: Breath sounds clear to auscultation bilaterally and equal. No wheezes rales or rhonchi. HEART: Regular rate and rhythm without murmurs ABDOMEN: Soft, nontender, nondistended abdomen. No guarding, no rebound. No masses appreciated. Right-sided colostomy-bag is old discolored. Examination of genitals-deferred Musculoskeletal: Normal range of motion, no pitting or edema. No cyanosis. NEUROLOGICAL: Cranial nerves grossly intact. Normal speech, normal gait. Normal sensory, motor exams PSYCH: Normal mood, normal affect. SKIN: Warm, Dry, normal turgor, no rashes or lesions noted. Dictation was performed using [employer] voice recognition software TRAVEL OUTSIDE OF THE [place] IN LAST 30 DAYS: No - HPI Notes: 06/10/18 11:28 Dictated - Related Data Allergies/Adverse Reactions: hydrocodone [Hydrocodone] Allergy (Verified 06/10/18 10:43) Past Medical History - Social History Smoking Status: Current Some Day Smoker Cigarette use (# per day): No Chew tobacco use (# tins/day): No Smoking Education Provided: No Frequency of alcohol use: Rare Drug Abuse: None Lives with: Family Family History: Reviewed & Not Pertinent, CAD Renal/ Medical History: Denies: Hx Peritoneal Dialysis GI Medical History: Reports: Hx Crohn's Disease, Hx Ulcerative Colitis Musculoskeletal Medical History: Reports Hx Musculoskeletal Trauma - Ankle with ORIF and finger Traumatic Medical History: Reports: Hx Fractures - Finger and ankle Past Surgical History: Reports: Hx Abdominal Surgery, Hx Bowel Surgery - For Crohn's, Hx Orthopedic Surgery - ORIF to ankle - Immunizations Hx Diphtheria, Pertussis, Tetanus Vaccination: Yes Review of Systems - Review of Systems Notes: Dictated Physical Exam - Vital signs Vitals: Temp Pulse Resp BP Pulse Ox 97.6 F 83 20 106/65 97 06/10/18 10:51 06/10/18 10:51 06/10/18 10:51 06/10/18 10:51 06/10/18 10:51 - Notes Notes: Dictated Course - Re-evaluation Re-evalutation: 06/10/18 11:29 He was given a new colostomy back in which was changed. - Vital Signs Vital signs: Temp Pulse Resp BP Pulse Ox 97.6 F 83 20 106/65 97 06/10/18 10:51 06/10/18 10:51 06/10/18 10:51 06/10/18 10:51 06/10/18 10:51 Discharge - Discharge Clinical Impression: Colostomy care Condition: Fair Disposition: HOME, SELF-CARE Instructions: Abdominal Pain ([facility])
== END 2018-06-10 11:31 | disposition home or self-care (01) ==
LOC: ER 10:42
DX: Z43.3 Encounter for attention to colostomy (principal); Z88.5 Allergy status to narcotic agent; F17.200 Nicotine dependence, unspecified, uncomplicated
CPT/HCPCS: 99283

== ENCOUNTER 2018-06-23 10:39 | Emergency (ER) | payer MEDICAID ==
[2018-06-23 10:44] VITALS: BP 131/64
[2018-06-23] MEDS ORDERED: DICYCLOMINE HCL 20 MG TABLET PO ONE (11:01)
--- NOTE | 2018-06-23 11:02 | ER Document Report ---
ED Medical Screen (RME) - General Chief Complaint: Abdominal Pain Stated Complaint: STOMACH PAIN TRAVEL OUTSIDE OF THE [place] IN LAST 30 DAYS: No - HPI Notes: 06/23/18 11:01 History of Crohn's with total colectomy no maintenance therapy coming in today because of abdominal pain diffuse abdominal pain mostly at the ostomy site states similar to his last visit better after the colostomy that was changed. - Related Data Allergies/Adverse Reactions: hydrocodone [Hydrocodone] Allergy (Verified 06/10/18 10:43) Past Medical History - Social History Chew tobacco use (# tins/day): No Frequency of alcohol use: None Drug Abuse: None Renal/ Medical History: Denies: Hx Peritoneal Dialysis GI Medical History: Reports: Hx Crohn's Disease, Hx Ulcerative Colitis Musculoskeltal Medical History: Reports Hx Musculoskeletal Trauma - Ankle with ORIF and finger Traumatic Medical History: Reports: Hx Fractures - Finger and ankle Past Surgical History: Reports: Hx Abdominal Surgery, Hx Bowel Surgery - For Crohn's, Hx Orthopedic Surgery - ORIF to ankle, Hx Tonsillectomy - Immunizations Hx Diphtheria, Pertussis, Tetanus Vaccination: Yes Review of Systems - Review of Systems Gastrointestinal: Abdominal pain Physical Exam - Vital signs Vitals: Temp Pulse Resp BP Pulse Ox 98.3 F 81 18 131/64 H 98 06/23/18 10:42 06/23/18 10:42 06/23/18 10:42 06/23/18 10:42 06/23/18 10:42 - General General appearance: Appears well In distress: None - Respiratory Respiratory status: No respiratory distress Chest status: Nontender Chest palpation: Normal Course - Vital Signs Vital signs: Temp Pulse Resp BP Pulse Ox 98.3 F 81 18 131/64 H 98 06/23/18 10:42 06/23/18 10:42 06/23/18 10:42 06/23/18 10:42 06/23/18 10:42
[2018-06-23 11:32] LABS: ABSOLUTE BASOPHILS # (AUTO) 0.1 10^3/uL (0.0-0.2); ABSOLUTE EOSINOPHILS # (AUTO) 0.3 10^3/uL (0.0-0.6); ABSOLUTE LYMPHOCYTES (AUTO) 1.7 10^3/uL (0.5-4.7); ABSOLUTE NEUT (AUTO) 3.9 10^3/uL (1.7-8.2); BASOPHILS % (AUTO) 1.7 % (0-2); EOSINOPHILS % (AUTO) 4.8 % (0-6); LYMPHOCYTES % (AUTO) 24.2 % (13-45); MEAN CORPUSCULAR HEMOGLOBIN 30.4 pg (27.0-33.4); MEAN CORPUSCULAR HGB CONC 33.2 g/dL (32.0-36.0); MEAN CORPUSCULAR VOLUME 92 fl (80-97); PLATELET COUNT 260 10^3/uL (150-450); RED BLOOD COUNT 4.59 10^6/uL (4.35-5.55); RED CELL DISTRIBUTION WIDTH 16.1 % (11.5-14.0); SEGMENTED NEUTROPHILS % (AUTO) 55.3 % (42-78); TOTAL CELLS COUNTED % (AUTO) 100 %
[2018-06-23 11:54] LABS: ALANINE AMINOTRANSFERASE 20 U/L (21-72); ALBUMIN 3.7 g/dL (3.5-5.0); ALKALINE PHOSPHATASE 57 U/L (38-126); ANION GAP 12 (5-19); ASPARTATE AMINO TRANSFERASE 15 U/L (17-59); BILIRUBIN,DIRECT 0.2 mg/dL (0.0-0.4); BILIRUBIN,TOTAL 0.4 mg/dL (0.2-1.3); BLOOD UREA NITROGEN 12 mg/dL (7-20); CALCIUM 9.1 mg/dL (8.4-10.2); CARBON DIOXIDE 21 mmol/L (22-30); CHLORIDE 110 mmol/L (98-107); GLUCOSE 96 mg/dL (75-110); LIPASE 86.7 U/L (23-300); POTASSIUM 4.3 mmol/L (3.6-5.0); SODIUM 143.1 mmol/L (137-145); TOTAL PROTEIN 7.2 g/dL (6.3-8.2)
--- NOTE | 2018-06-23 12:11 | ER Document Report ---
ED General - General Chief Complaint: Abdominal Pain Stated Complaint: STOMACH PAIN Time Seen by Provider: 06/23/18 11:03 Mode of Arrival: Ambulatory Information source: Patient Notes: Patient presents emergency department with complaints of abdominal pain skin irritation. Patient has a history of crohns with an colostomy. Reports colostomy for the past 3 years. He was here a few weeks ago with same symptoms. Reports his stomach is feeling better but still sore. Emergency department case management did discuss colostomy equipment when the patient was here last time. He reports he was never contacted by anyone. Patient continues to use the same small colostomy bag. Reports he has not changed in 2 weeks. Denies fever vomiting diarrhea. Reports normal BM from stoma. TRAVEL OUTSIDE OF THE [place] IN LAST 30 DAYS: No - HPI Onset: Other Onset/Duration: Persistent Quality of pain: Other - sore Severity: Moderate Pain Level: 3 Associated symptoms: None Exacerbated by: Denies Relieved by: Denies Similar symptoms previously: Yes Recently seen / treated by doctor: Yes - Related Data Allergies/Adverse Reactions: hydrocodone [Hydrocodone] Allergy (Verified 06/10/18 10:43) Past Medical History - General Information source: Patient - Social History Smoking Status: Former Smoker Cigarette use (# per day): No Chew tobacco use (# tins/day): No Frequency of alcohol use: None Drug Abuse: None Family History: Reviewed & Not Pertinent, CAD Patient has suicidal ideation: No Patient has homicidal ideation: No Renal/ Medical History: Denies: Hx Peritoneal Dialysis GI Medical History: Reports: Hx Crohn's Disease, Hx Ulcerative Colitis Musculoskeletal Medical History: Reports Hx Musculoskeletal Trauma - Ankle with ORIF and finger Traumatic Medical History: Reports: Hx Fractures - Finger and ankle Past Surgical History: Reports: Hx Abdominal Surgery, Hx Bowel Surgery - For Crohn's, Hx Orthopedic Surgery - ORIF to ankle, Hx Tonsillectomy - Immunizations Hx Diphtheria, Pertussis, Tetanus Vaccination: Yes Review of Systems - Review of Systems Notes: Review HPI for review of systems., All other systems negative Physical Exam - Vital signs Vitals: Temp Pulse Resp BP Pulse Ox 98.3 F 81 18 131/64 H 98 06/23/18 10:42 06/23/18 10:42 06/23/18 10:42 06/23/18 10:42 06/23/18 10:42 - Notes Notes: PHYSICAL EXAMINATION: GENERAL: Well-appearing and in no acute distress HEAD: Atraumatic, normocephalic. EYES: extraocular movements intact, sclera anicteric, conjunctiva are normal. ENT: nares patent, Moist mucous membranes. NECK: Normal range of motion, supple without lymphadenopathy LUNGS: CTAB and equal. No wheezes rales or rhonchi. HEART: Regular rate and rhythm without murmurs ABDOMEN: Soft, tenderness around stoma. stoma itself is red (patient reports normal color) No guarding, no rebound stoma with stool noted, EXTREMITIES: Normal range of motion, no pitting edema. No cyanosis. NEUROLOGICAL: Cranial nerves grossly intact. Normal sensory/motor exams. PSYCH: Normal mood, normal affect. SKIN: Warm, Dry, normal turgor, no rashes or lesions noted, skin irritated around stoma, posterior-no open wounds no lesions no vesicles no draining no warmth Course - Re-evaluation Re-evalutation: 06/23/18 13:19 Reviewed his ostomy bags in noted that there are very small. Very tight fit around the ostomy. he was provided with larger bags. Patient was also instructed on care of his ostomy site. stoma itself looks good, pt reports normal, normal stool, just sore to skin around the stoma. Patient reports he is right home he reports his girlfriend is in the waiting room. Requesting some for pain. Percocet ordered. - Vital Signs Vital signs: Temp Pulse Resp BP Pulse Ox 98.3 F 81 18 131/64 H 98 06/23/18 10:42 06/23/18 10:42 06/23/18 10:42 06/23/18 10:42 06/23/18 10:42 - Laboratory Result Diagrams: 06/23/18 11:08 06/23/18 11:08 Laboratory results interpreted by me: 06/23/18 06/23/18 11:08 11:08 RDW 16.1 H Monocytes % 14.0 H Chloride 110 H Carbon Dioxide 21 L AST 15 L ALT 20 L Discharge - Discharge Clinical Impression: Skin irritation Abdominal pain Qualifiers: Abdominal location: right lower quadrant Qualified Code(s): R10.31 - Right lower quadrant pain Condition: Stable Disposition: HOME, SELF-CARE Instructions: Abdominal Pain ([facility]), Family Physicians / Practices Additional Instructions: *You have been evaluated for abdominal pain, skin irritation around your stoma *Use the proper wafers *Follow up with your primary care provider within 5 days *Return to ED for worsening condition, changes, needs *Return to ED if not better in 24 hours Monitor your blood pressure. Your blood pressure was elevated today. This may be because you were anxious, in pain or because you need medication. It is important to follow up with your primary care provider for full evaluation. Forms: Elevated Blood Pressure
[2018-06-23] MEDS ORDERED: OXYCODONE-ACETAMINOPHEN 5-325 MG TABLET PO ONE (12:46)
== END 2018-06-23 14:11 | disposition home or self-care (01) ==
LOC: ER 10:39
DX: R10.31 Right lower quadrant pain (principal); Z93.3 Colostomy status; Z87.891 Personal history of nicotine dependence
CPT/HCPCS: 99284; 36415; 83690; 85025; 80053; 83605; J3490

== ENCOUNTER 2018-09-02 13:57 | Emergency (ER) | payer MEDICAID ==
[2018-09-02 14:27] VITALS: BP 122/64
--- NOTE | 2018-09-02 14:49 | ER Document Report ---
ED Headache - General Chief Complaint: Headache, Worst Ever Stated Complaint: ANKLE PAIN Time Seen by Provider: 09/02/18 14:41 Notes: Chief complaint: Headache History of complain:( obtained from----patient) 42 years old male presents today with left-sided flank pain. Semiannually of breath lift lots of heavy object. No injuries. Denies any nausea vomiting focal weakness numbness tingling sensation. Onset: As above Duration: Gradual Severity: Moderate Quality: Sharp Context: Strain Exacerbating factor and relieving factors: Movement of the neck REVIEW OF SYSTEMS: CONSTITUTIONAL : Denies fever, chills, or sweats. Denies recent illness. EENT: Denies eye, ear, throat, or mouth pain or symptoms. Denies nasal or sinus congestion or discharge. Denies throat, tongue, or mouth swelling or difficulty swallowing. CARDIOVASCULAR: Denies chest pain. Denies palpitations or racing or irregular heart beat. Denies ankle edema. RESPIRATORY: Denies cough, cold, or chest congestion. Denies shortness of breath, difficulty breathing, or wheezing. GASTROINTESTINAL: Denies distention. Denies nausea, vomiting, or diarrhea. Denies blood in vomitus, stools, or per rectum. Denies black, tarry stools. Denies constipation. GENITOURINARY: Denies difficulty urinating, painful urination, burning, frequency, blood in urine, or discharge. FEMALE GENITOURINARY: Denies vaginal bleeding, heavy or abnormal periods, irregular periods. Denies vaginal discharge or odor. MUSCULOSKELETAL: Denies back or neck pain or stiffness. Denies joint pain or swelling. SKIN: Denies rash, lesions or sores. HEMATOLOGIC : Denies easy bruising or bleeding. LYMPHATIC: Denies swollen, enlarged glands. NEUROLOGICAL: Denies confusion or altered mental status. Denies passing out or loss of consciousness. Denies dizziness or lightheadedness. Denies headache. Denies weakness or paralysis or loss of use of either side. Denies problems with gait or speech. Denies sensory loss, numbness, or tingling. Denies seizures. PSYCHIATRIC: Denies anxiety or stress. Denies depression, suicidal ideation, or homicidal ideation. ALL OTHER SYSTEMS REVIEWED AND NEGATIVE. PHYSICAL EXAMINATION: GENERAL: Well-appearing, well-nourished and in no acute distress. HEAD: Atraumatic, normocephalic. EYES: Pupils equal round and reactive to light, extraocular movements intact, conjunctiva are normal. ENT: Nares patent, oropharynx clear without exudates. Moist mucous membranes. NECK: Left paraspinal muscles extremely tender on palpation Normal range of motion, supple without lymphadenopathy LUNGS: Breath sounds clear to auscultation bilaterally and equal. No wheezes rales or rhonchi. HEART: Regular rate and rhythm without murmurs ABDOMEN: Soft, nontender, nondistended abdomen. No guarding, no rebound. No masses appreciated. Examination of genitals-deferred Musculoskeletal: Normal range of motion, no pitting or edema. No cyanosis. NEUROLOGICAL: Cranial nerves grossly intact. Normal speech, normal gait. Normal sensory, motor exams PSYCH: Normal mood, normal affect. SKIN: Warm, Dry, normal turgor, no rashes or lesions noted. Dictation was performed using [employer] voice recognition software TRAVEL OUTSIDE OF THE [place] IN LAST 30 DAYS: No - Related Data Allergies/Adverse Reactions: hydrocodone [Hydrocodone] Allergy (Verified 09/02/18 13:58) Past Medical History - Social History Smoking Status: Current Every Day Smoker Smoking Education Provided: No Frequency of alcohol use: Rare Lives with: Family Family History: Reviewed & Not Pertinent, CAD Renal/ Medical History: Denies: Hx Peritoneal Dialysis GI Medical History: Reports: Hx Crohn's Disease, Hx Ulcerative Colitis Musculoskeletal Medical History: Reports Hx Musculoskeletal Trauma - Ankle with ORIF and finger Traumatic Medical History: Reports: Hx Fractures - Finger and ankle Past Surgical History: Reports: Hx Abdominal Surgery, Hx Bowel Surgery - For Crohn's, Hx Orthopedic Surgery - ORIF to ankle, Hx Tonsillectomy - Immunizations Hx Diphtheria, Pertussis, Tetanus Vaccination: Yes Review of Systems - Review of Systems Notes: Dictated Physical Exam - Vital signs Vitals: Temp Pulse Resp BP Pulse Ox 98.4 F 95 16 122/64 97 09/02/18 14:25 09/02/18 14:25 09/02/18 14:25 09/02/18 14:25 09/02/18 14:25 - Notes Notes: Dictated Course - Vital Signs Vital signs: Temp Pulse Resp BP Pulse Ox 98.4 F 95 16 122/64 97 09/02/18 14:25 09/02/18 14:25 09/02/18 14:25 09/02/18 14:25 09/02/18 14:25 Discharge - Discharge Clinical Impression: Cervical strain, acute Headache Qualifiers: Headache type: tension-type Headache chronicity pattern: unspecified pattern Intractability: not intractable Qualified Code(s): G44.209 - Tension-type headache, unspecified, not intractable Disposition: HOME, SELF-CARE Instructions: Neck Injury (Cervical Strain) ([facility]), Headache ([facility]) Prescriptions: Baclofen [Baclofen 10 mg Tablet] 10 mg PO TID #30 tab Diazepam [Valium 2 mg Tablet] 2 mg PO Q12 #10 tablet Naproxen 500 mg PO BID #20 tablet Oxycodone HCl/Acetaminophen [Percocet 5-325 mg Tablet] 1 - 2 tab PO ASDIR PRN # 10 tablet PRN Reason:
== END 2018-09-02 14:53 | disposition home or self-care (01) ==
LOC: ER 13:57
DX: S16.1XXA Strain of muscle, fascia and tendon at neck level, initial encounter (principal); X58.XXXA Exposure to other specified factors, initial encounter; R10.9 Unspecified abdominal pain; G44.209 Tension-type headache, unspecified, not intractable; F17.200 Nicotine dependence, unspecified, uncomplicated
CPT/HCPCS: 99283

== ENCOUNTER 2019-02-02 18:35 | Emergency (ER) | payer MEDICAID ==
[2019-02-02] MEDS ORDERED: OXYCODONE-ACETAMINOPHEN 5-325 MG TABLET PO ONE (19:36)
--- NOTE | 2019-02-02 19:47 | ER Document Report ---
ED Hand/Wrist Injury - General Chief Complaint: Hand Injury Stated Complaint: LEFT HAND INJURY Time Seen by Provider: 02/02/19 19:16 Mode of Arrival: Ambulatory Information source: Patient Notes: 43-year-old male presents to ED for complaint of pain to his left hand fourth and fifth finger after he slammed his hand in a car door. He had active bleeding when he first came to the emergency room. He states his pain was a 5 out of 5 and was crying. Patient is alert oriented respirations regular and unlabored. Patient had dressing applied in the Pivot area which I removed and have examined the finger and there is a laceration to the top of the fourth finger with dried blood all over the hand. He has had an x-ray which shows a fracture to the distal fourth finger I did not see any other fractures but I will wait for radiology report for treatment. I have also ordered him a Percocet. He is soaking his hand in warm Shur-Clens and saline while I wait for the report. TRAVEL OUTSIDE OF THE [place] IN LAST 30 DAYS: No - HPI Injury to: Ring finger, Small finger Onset: This afternoon Where: [place], Outdoors Timing: Still present Quality of pain: Sharp, Throbbing Severity: Severe Pain Level: 5 Context: Crush, Laceration - Related Data Allergies/Adverse Reactions: hydrocodone [Hydrocodone] Allergy (Verified 02/02/19 18:36) Past Medical History - General Information source: Patient - Social History Smoking Status: Former Smoker Frequency of alcohol use: Occasional Drug Abuse: None Lives with: Family Family History: Reviewed & Not Pertinent, CAD Patient has suicidal ideation: No Patient has homicidal ideation: No - Past Medical History Cardiac Medical History: Reports: None Pulmonary Medical History: Reports: None EENT Medical History: Reports: None Neurological Medical History: Reports: None Endocrine Medical History: Reports: None Renal/ Medical History: Reports: None Malignancy Medical History: Reports None GI Medical History: Reports: Hx Crohn's Disease, Hx Ulcerative Colitis Musculoskeletal Medical History: Reports Hx Musculoskeletal Trauma - Ankle with ORIF and finger Skin Medical History: Reports None Psychiatric Medical History: Reports: None Traumatic Medical History: Reports: Hx Fractures - Finger and ankle Past Surgical History: Reports: Hx Abdominal Surgery, Hx Bowel Surgery - For Crohn's, Hx Orthopedic Surgery - ORIF to ankle, Hx Tonsillectomy - Immunizations Hx Diphtheria, Pertussis, Tetanus Vaccination: Yes - 2018 Review of Systems - Review of Systems Constitutional: No symptoms reported EENT: No symptoms reported Cardiovascular: No symptoms reported Respiratory: No symptoms reported Gastrointestinal: No symptoms reported Genitourinary: No symptoms reported Male Genitourinary: No symptoms reported Musculoskeletal: Other - Pain to the left fourth and fifth finger Skin: Other - Laceration to the left fourth distal finger Hematologic/Lymphatic: No symptoms reported, Other Neurological/Psychological: No symptoms reported -: Yes All other systems reviewed and negative Physical Exam - Vital signs Vitals: Temp Pulse Resp BP Pulse Ox 98.0 F 84 18 147/95 H 95 02/02/19 18:53 02/02/19 18:53 02/02/19 18:53 02/02/19 18:53 02/02/19 18:53 Interpretation: Normal - General General appearance: Appears well, Alert - HEENT Head: Normocephalic, Atraumatic Eyes: Normal Pupils: PERRL - Respiratory Respiratory status: No respiratory distress Chest status: Nontender Breath sounds: Normal Chest palpation: Normal - Cardiovascular Rhythm: Regular Heart sounds: Normal auscultation Murmur: No - Abdominal Inspection: Normal Distension: No distension Bowel sounds: Normal Tenderness: Nontender Organomegaly: No organomegaly - Back Back: Normal, Nontender - Extremities General upper extremity: Normal temperature General lower extremity: Normal inspection, Nontender, Normal color, Normal ROM, Normal temperature, Normal weight bearing. No: Krys's sign Hand: Tender - left 4th and 5th finger, Ecchymosis, Laceration - left 4th finger 2 cm open fracture proximal head of distal 4th phalanx, No evidence of human bite, No evidence of FB, Swelling - Neurological Neuro grossly intact: Yes Cognition: Normal Orientation: AAOx4 Deborah Coma Scale Eye Opening: Spontaneous Deborah Coma Scale Verbal: Oriented Mcfarlan Coma Scale Motor: Obeys Commands Deborah Coma Scale Total: 15 Speech: Normal Motor strength normal: LUE, RUE, LLE, RLE Sensory: Normal - Psychological Associated symptoms: Normal affect, Normal mood - Skin Skin Temperature: Warm Skin Moisture: Dry Skin Color: Normal Skin irregularity: Laceration Location of irregularity: Extremities - left fth finger laceration open fracture Irregularity with: Swelling, Tenderness Course - Re-evaluation Re-evalutation: 02/02/19 21:[address] Tran concerning this open fracture to the proximal head of the fourth distal phalanx of the hand. He stated it would just need to be irrigated well sutured put on antibiotics in a splint and have follow-up in his office. As patient refused to have more than one suture I did dress it with bacitracin with Telfa pad and then apply a finger splint. Patient has been instructed to follow-up with orthopedics and given the name and number for Dr. Tran. He is also been given a prescription for Percocet and Augmentin. Patient will be di scharged home. We did not have any Xeroform to apply. - Vital Signs Vital signs: Temp Pulse Resp BP Pulse Ox 98.0 F 84 18 147/95 H 95 02/02/19 18:53 02/02/19 18:53 02/02/19 18:53 02/02/19 18:53 02/02/19 18:53 - Diagnostic Test Radiology reviewed: Image reviewed, Reports reviewed Procedures - Immobilization Left Finger 4th digit Time completed: 21:43 Immobilizer type: Finger splint (Static) Performed by: PCT Post-Proc Neuro Vasc Exam: Normal Alignment checked and good: Yes - Laceration/Wound Repair Left Finger 4th digit Time completed: 21:29 Wound length (cm): 2 Wound's Depth, Shape: Irregular, Other Laceration pre-procedure: Sterile PPE donned, Sterile drapes applied, Shur-Clens applied Anesthetic type: 1% Lidocaine Volume Anesthetic (mLs): 8 Wound explored: Contaminated Irrigated w/ Saline (mLs): 400 Wound Debrided: Minimal Wound Repaired With: Sutures Suture Size/Type: 4:0, Ethilon Number of Sutures: 1 - Patient refused to have more lidocaine or more sutures Layer Closure?: No Post-procedure wound care: Sterile dressing applied, Splint applied, Other - Xeroform Post-procedure NV exam normal: Yes Complications: Yes - Open fracture Notes: 02/02/19 21:32 Patient refused more than 1 suture and refused to have more lidocaine to help him stand the pain for more sutures. Discharge - Discharge Clinical Impression: open fracture to left 4th finger distal Condition: Stable Disposition: HOME, SELF-CARE Instructions: Family Physicians / Practices Additional Instructions: You were seen today for an open fracture to the proximal head of the fourth distal phalanx of the finger. Wound has been well cleaned and sutured in the emergency room Hand Laceration A laceration on the hand can present special problems. It may be difficult to keep the wound dry. Motion of the fingers can disturb the healing edges. Your work may involve exposure to damaging chemicals or water. Keep the wound clean and dry. If you can't keep the cut dry, undisturbed, and free of chemical exposure, please discuss this with the doctor. If any water or chemical gets onto the dressing, remove it, blot the wound dry, then apply a fresh bandage. Dressings should be changed every day. If you feel the stitches pulling as you move the hand, a splint or other form of protection is needed. If any signs of infection occur (swelling, redness, increasing tenderness, red streaks, tender lumps in the armpit, or fever), see the doctor immediately. SOAP CLEANSING: Gently wash the wound daily using a mild soap (like Ivory, Phisoderm, Neutrogena). Use warm water, rubbing gently until all debris, ooze, and crusting have been washed from the wound. Allow to dry briefly (about 10 minutes) after cleaning. Repeat this cleansing at least three times a day for the first two days and then once or twice a day. ANTIBIOTIC OINTMENT PROTECTION: Your wounds are such that dressing them is not practical or optional. After cleansing, you should apply a thin coating of antibiotic ointment (Bacitracin, not Neosporin) to the wounds at least three times daily. This lessens infection risk, and may decrease the amount of scarring. Use a q-tip or dull butter knife, not your finger, to apply this ointment. Any debris or ooze which builds up in the ointment should be gently rubbed off with a sterile gauze pad. Harder crusting may need to be gently scrubbed off with a clean wash cloth with soap and warm water, perhaps applying a warm, wet wash cloth to the wound for ten minutes first. Development of redness, severe itching, or blistering may mean allergy to the ointment. See the doctor. PROPHYLACTIC ANTIBIOTIC: The antibiotics which have been prescribed are designed to decrease the risk of infection. Only certain types of wounds benefit from this -- the typical cut, scrape, or burn DOES NOT require antibiotics. Of course, infection can still occur despite the use of prophylactic antibiotics. Your wound will heal with less chance of an infectious complication if you take the medication as directed. The most important dose is the FIRST dose, so don't delay filling the prescription! Do not change the dressing for the first 24 hours. After that you will need to be sure to clean the wound twice a day change the dressing and reapply the splint. ORAL NARCOTIC MEDICATION: You have been given a prescription for pain control. This medication is a narcotic. It's best taken with food, as nausea can result if taken on an empty stomach. Don't operate machinery or drive within six hours of taking this medication. Do not combine this medicine with alcohol, or with any medication which can cause sedation (such as cold tablets or sleeping pills) unless you get permission from the physician. Narcotics tend to cause constipation. If possible, drink plenty of fluids and eat a diet high in fiber and fruits. Call orthopedics tomorrow and schedule follow-up appointment for this open fracture of the proximal head of the fourth distal phalanx. FOLLOW-UP CARE: If you have been referred to a physician for follow-up care, call the physicians office for an appointment as you were instructed or within the next two days. If you experience worsening or a significant change in your symptoms, notify the physician immediately or return to the Emergency Department at any time for re-evaluation. Prescriptions: Oxycodone HCl/Acetaminophen [Percocet 5-325 mg Tablet] 1 tab PO Q6HP PRN #7 tablet PRN Reason: Amox Tr/Potassium Clavulanate [Augmentin 875-125 Tablet] 1 tab PO BID 10 Days tablet Forms: Elevated Blood Pressure Referrals: YAHIR TRAN DO [ACTIVE STAFF] - Follow up as needed
--- NOTE | 2019-02-02 20:10 | RADIOLOGY REPORT (SQ) ---
EXAM DESCRIPTION: Left hand radiographs Views: 4 CLINICAL HISTORY: 43 years Male, caught in door laceration 4th finger COMPARISON: None. FINDINGS: There is an acute fracture of the proximal head of the 4th distal phalanx, with minimal anterior angulation. There is no widening of the joint space, or dislocation of the joint. No associated hyperdense foreign bodies. No additional fractures. IMPRESSION: 1. Acute slightly angulated fracture of the proximal head of the 4th distal phalanx
[2019-02-02] MEDS ORDERED: AMOXICILLIN TR/POT CLAVULANATE 500-125 MG TAB PO ONE (21:01)
[2019-02-02] MEDS ORDERED: LIDOCAINE 1% INJ-PF (10 MG/ML) 30 ML SDV INJ ONE (21:07)
[2019-02-02] MEDS ORDERED: LIDOCAINE 1% INJ-PF (10 MG/ML) 30 ML SDV ONE (21:07)
[2019-02-02 21:51] VITALS: BP 132/86
== END 2019-02-02 21:52 | disposition home or self-care (01) ==
LOC: ER 18:35
DX: S62.635B Displaced fracture of distal phalanx of left ring finger, initial encounter for open fracture (principal); W23.0XXA Caught, crushed, jammed, or pinched between moving objects, initial encounter
CPT/HCPCS: 99283; 73130; 12001; J3490 ×2

== ENCOUNTER 2019-02-19 12:15 | Emergency (ER) | payer MEDICAID ==
[2019-02-19 12:21] VITALS: BP 122/63
--- NOTE | 2019-02-19 12:37 | ER Document Report ---
ED Medical Screen (RME) - General Chief Complaint: Abdominal Pain Stated Complaint: ABDOMINAL PAIN Time Seen by Provider: 02/19/19 12:31 Mode of Arrival: Ambulatory Information source: Patient Notes: 43-year-old male presented to ED for complaint of abdominal pain since yesterday. He does have a colostomy due to Crohn's. He states he tried to call his Crohn's doctor but they have not answered yet. He is alert oriented respirations regular and unlabored speaking in full sentences walks with a even steady gait. He did denied nausea or vomiting at this time. Patient does smoke half a pack a day. I have greeted and performed a rapid initial assessment of this patient. A comprehensive ED assessment and evaluation of the patient, analysis of test results and completion of medical decision making process will be conducted by an additional ED providers. TRAVEL OUTSIDE OF THE [place] IN LAST 30 DAYS: No - Related Data Allergies/Adverse Reactions: hydrocodone [Hydrocodone] Allergy (Verified 02/19/19 12:16) Past Medical History Renal/ Medical History: Denies: Hx Peritoneal Dialysis GI Medical History: Reports: Hx Crohn's Disease, Hx Ulcerative Colitis Musculoskeltal Medical History: Reports Hx Musculoskeletal Trauma - Ankle with ORIF and finger Traumatic Medical History: Reports: Hx Fractures - Finger and ankle Past Surgical History: Reports: Hx Abdominal Surgery, Hx Bowel Surgery - For Crohn's, Hx Orthopedic Surgery - ORIF to ankle, Hx Tonsillectomy - Immunizations Hx Diphtheria, Pertussis, Tetanus Vaccination: Yes - 2018 Physical Exam - Vital signs Vitals: Temp Pulse Resp BP Pulse Ox 97.8 F 84 16 122/63 96 02/19/19 12:19 02/19/19 12:19 02/19/19 12:19 02/19/19 12:19 02/19/19 12:19 Course - Vital Signs Vital signs: Temp Pulse Resp BP Pulse Ox 97.8 F 84 16 122/63 96 02/19/19 12:19 02/19/19 12:19 02/19/19 12:19 02/19/19 12:19 02/19/19 12:19
[2019-02-19 13:20] LABS: ABSOLUTE EOSINOPHILS # (AUTO) 0.3 10^3/uL (0.0-0.6); ABSOLUTE LYMPHOCYTES (AUTO) 1.5 10^3/uL (0.5-4.7); ABSOLUTE MONOCYTES (AUTO) 0.7 10^3/uL (0.1-1.4); ABSOLUTE NEUT (AUTO) 2.9 10^3/uL (1.7-8.2); BASOPHILS % (AUTO) 0.7 % (0-2); EOSINOPHILS % (AUTO) 5.6 % (0-6); HEMATOCRIT 43.8 % (37.9-51.0); HEMOGLOBIN 14.5 g/dL (13.5-17.0); LYMPHOCYTES % (AUTO) 27.5 % (13-45); MEAN CORPUSCULAR HEMOGLOBIN 30.8 pg (27.0-33.4); MEAN CORPUSCULAR HGB CONC 33.2 g/dL (32.0-36.0); MEAN CORPUSCULAR VOLUME 93 fl (80-97); MONOCYTES % (AUTO) 12.5 % (3-13); PLATELET COUNT 247 10^3/uL (150-450); RED BLOOD COUNT 4.72 10^6/uL (4.35-5.55); RED CELL DISTRIBUTION WIDTH 15.9 % (11.5-14.0); SEGMENTED NEUTROPHILS % (AUTO) 53.7 % (42-78); TOTAL CELLS COUNTED % (AUTO) 100 %; WHITE BLOOD COUNT 5.4 10^3/uL (4.0-10.5)
[2019-02-19 13:26] LABS: APPEARANCE,URINE CLEAR; BILIRUBIN,URINE NEGATIVE (NEGATIVE); COLOR,URINE YELLOW; GLUCOSE, URINE NEGATIVE (NEGATIVE); KETONES,URINE NEGATIVE (NEGATIVE); LEUKOCYTE ESTERASE,URINE TRACE (NEGATIVE); NITRITE,URINE NEGATIVE (NEGATIVE); PROTEIN,URINE NEGATIVE (NEGATIVE); URINE SPECIFIC GRAVITY 1.018; UROBILINOGEN,URINE NEGATIVE mg/dL (<2.0)
[2019-02-19 13:38] LABS: ALANINE AMINOTRANSFERASE 23 U/L (21-72); ALKALINE PHOSPHATASE 65 U/L (38-126); ANION GAP 10 (5-19); ASPARTATE AMINO TRANSFERASE 24 U/L (17-59); BILIRUBIN,DIRECT 0.2 mg/dL (0.0-0.4); BILIRUBIN,TOTAL 0.6 mg/dL (0.2-1.3); BLOOD UREA NITROGEN 17 mg/dL (7-20); CALCIUM 9.4 mg/dL (8.4-10.2); CARBON DIOXIDE 20 mmol/L (22-30); CHLORIDE 109 mmol/L (98-107); GLUCOSE 96 mg/dL (75-110); POTASSIUM 4.1 mmol/L (3.6-5.0); SODIUM 138.9 mmol/L (137-145); TOTAL PROTEIN 7.8 g/dL (6.3-8.2)
== END 2019-02-19 14:23 | disposition left against medical advice (07) ==
LOC: ER 12:15
DX: K50.90 Crohn's disease, unspecified, without complications (principal); Z93.3 Colostomy status; F17.200 Nicotine dependence, unspecified, uncomplicated; Z88.5 Allergy status to narcotic agent; Z53.20 Procedure and treatment not carried out because of patient's decision for unspecified reasons
CPT/HCPCS: 36415; 80053; 81001; 85025; 99281

== ENCOUNTER 2019-03-31 11:01 | Emergency (ER) | payer MEDICAID ==
[2019-03-31 11:24] VITALS: BP 123/68
[2019-03-31] MEDS ORDERED: OXYCODONE-ACETAMINOPHEN 5-325 MG TABLET PO ONE (12:58)
--- NOTE | 2019-03-31 12:58 | ER Document Report ---
ED Medical Screen (RME) - General Chief Complaint: Abdominal Pain Stated Complaint: ABDOMINAL PAIN Time Seen by Provider: 03/31/19 12:56 Mode of Arrival: Ambulatory Information source: Patient Notes: 43-year-old male presented to ED for complaint of severe abdominal pain nausea and vomiting. He states he vomited yesterday but not today. He states he is having severe abdominal pain and does not have any pain medicine at home at this time. He states his primary doctor usually gives him pain medicine but he has not been able to get the appointment and is run out. Patient will be treated with 1 Percocet and Zofran in the emergency room and blood and urine will be obtained and patient will be seen by another provider. Patient states he does not have any ostomy supplies at home and will need a set of ostomy supplies to change his colostomy bag. I have greeted and performed a rapid initial assessment of this patient. A comprehensive ED assessment and evaluation of the patient, analysis of test results and completion of medical decision making process will be conducted by an additional ED providers. Dictation of this chart was performed using voice recognition software; ther efore, there may be some unintended grammatical errors. TRAVEL OUTSIDE OF THE [place] IN LAST 30 DAYS: No - Related Data Allergies/Adverse Reactions: hydrocodone [Hydrocodone] Allergy (Verified 03/31/19 11:10) Past Medical History - Social History Frequency of alcohol use: None Drug Abuse: None Renal/ Medical History: Denies: Hx Peritoneal Dialysis GI Medical History: Reports: Hx Crohn's Disease, Hx Ulcerative Colitis Musculoskeltal Medical History: Reports Hx Musculoskeletal Trauma - Ankle with ORIF and finger Traumatic Medical History: Reports: Hx Fractures - Finger and ankle Past Surgical History: Reports: Hx Abdominal Surgery, Hx Bowel Surgery - For Crohn's, Hx Orthopedic Surgery - ORIF to ankle, Hx Tonsillectomy - Immunizations Hx Diphtheria, Pertussis, Tetanus Vaccination: Yes - 2018 Physical Exam - Vital signs Vitals: Temp Pulse Resp BP Pulse Ox 97.5 F 66 16 123/68 96 03/31/19 11:23 03/31/19 11:23 03/31/19 11:23 03/31/19 11:23 03/31/19 11:23 Course - Vital Signs Vital signs: Temp Pulse Resp BP Pulse Ox 97.5 F 66 16 123/68 96 03/31/19 11:23 03/31/19 11:23 03/31/19 11:23 03/31/19 11:23 03/31/19 11:23
[2019-03-31 13:35] LABS: ABSOLUTE BASOPHILS # (AUTO) 0.1 10^3/uL (0.0-0.2); ABSOLUTE EOSINOPHILS # (AUTO) 0.3 10^3/uL (0.0-0.6); ABSOLUTE LYMPHOCYTES (AUTO) 1.7 10^3/uL (0.5-4.7); ABSOLUTE MONOCYTES (AUTO) 1.1 10^3/uL (0.1-1.4); ABSOLUTE NEUT (AUTO) 4.7 10^3/uL (1.7-8.2); BASOPHILS % (AUTO) 0.8 % (0-2); EOSINOPHILS % (AUTO) 3.6 % (0-6); HEMATOCRIT 45.2 % (37.9-51.0); HEMOGLOBIN 14.8 g/dL (13.5-17.0); LYMPHOCYTES % (AUTO) 21.1 % (13-45); MEAN CORPUSCULAR HEMOGLOBIN 30.5 pg (27.0-33.4); MEAN CORPUSCULAR HGB CONC 32.9 g/dL (32.0-36.0); MEAN CORPUSCULAR VOLUME 93 fl (80-97); MONOCYTES % (AUTO) 14.1 % (3-13); PLATELET COUNT 270 10^3/uL (150-450); RED BLOOD COUNT 4.86 10^6/uL (4.35-5.55); RED CELL DISTRIBUTION WIDTH 16.8 % (11.5-14.0); SEGMENTED NEUTROPHILS % (AUTO) 60.4 % (42-78); TOTAL CELLS COUNTED % (AUTO) 100 %; WHITE BLOOD COUNT 7.8 10^3/uL (4.0-10.5)
[2019-03-31 13:38] LABS: APPEARANCE,URINE CLEAR; BILIRUBIN,URINE NEGATIVE (NEGATIVE); COLOR,URINE YELLOW; GLUCOSE, URINE NEGATIVE (NEGATIVE); KETONES,URINE NEGATIVE (NEGATIVE); LEUKOCYTE ESTERASE,URINE NEGATIVE (NEGATIVE); NITRITE,URINE NEGATIVE (NEGATIVE); PROTEIN,URINE NEGATIVE (NEGATIVE); URINE SPECIFIC GRAVITY 1.021; UROBILINOGEN,URINE NEGATIVE mg/dL (<2.0)
[2019-03-31 14:01] LABS: ALANINE AMINOTRANSFERASE 24 U/L (21-72); ALBUMIN 4.4 g/dL (3.5-5.0); ALKALINE PHOSPHATASE 69 U/L (38-126); ANION GAP 11 (5-19); ASPARTATE AMINO TRANSFERASE 18 U/L (17-59); BILIRUBIN,DIRECT 0.2 mg/dL (0.0-0.4); BILIRUBIN,TOTAL 0.5 mg/dL (0.2-1.3); BLOOD UREA NITROGEN 14 mg/dL (7-20); CALCIUM 9.9 mg/dL (8.4-10.2); CARBON DIOXIDE 25 mmol/L (22-30); CHLORIDE 108 mmol/L (98-107); GLUCOSE 93 mg/dL (75-110); POTASSIUM 4.3 mmol/L (3.6-5.0); SODIUM 144.4 mmol/L (137-145)
== END 2019-03-31 17:50 | disposition left against medical advice (07) ==
LOC: ER 11:01
DX: R10.9 Unspecified abdominal pain (principal); R11.2 Nausea with vomiting, unspecified; Z93.3 Colostomy status; Z88.5 Allergy status to narcotic agent; Z53.20 Procedure and treatment not carried out because of patient's decision for unspecified reasons
CPT/HCPCS: 36415; 80053; 81001; 85025; 99281

== ENCOUNTER 2019-04-22 12:28 | Emergency (ER) | payer MEDICAID ==
[2019-04-22 12:41] VITALS: BP 138/85
[2019-04-22] MEDS ORDERED: ONDANSETRON 4 MG TAB.RAPDIS PO ONE (12:44)
--- NOTE | 2019-04-22 12:46 | ER Document Report ---
ED Medical Screen (RME) - General Chief Complaint: Abdominal Pain Stated Complaint: VOMITING Time Seen by Provider: 04/22/19 12:41 Mode of Arrival: Ambulatory Information source: Patient Notes: Patient presents to the emergency department with epigastric right upper quad abdominal pain. Reports started this morning has vomiting some diarrhea. Reports he has a colostomy from Crohn's has had a colostomy for about 3-1/2 years. Reports diarrhea in the colostomy. Denies fever. Right upper quad tender to palpation I have greeted and performed a rapid initial assessment of this patient. A comprehensive ED assessment and evaluation of the patient, analysis of test results and completion of the medical decision making process will be conducted by additional ED providers. Dictation of this chart was performed using voice recognition software; therefore, there may be some unintended grammatical errors. TRAVEL OUTSIDE OF THE [place] IN LAST 30 DAYS: No - Related Data Allergies/Adverse Reactions: hydrocodone [Hydrocodone] Allergy (Verified 04/22/19 12:31) Past Medical History Renal/ Medical History: Denies: Hx Peritoneal Dialysis GI Medical History: Reports: Hx Crohn's Disease, Hx Ulcerative Colitis Musculoskeltal Medical History: Reports Hx Musculoskeletal Trauma - Ankle with ORIF and finger Traumatic Medical History: Reports: Hx Fractures - Finger and ankle Past Surgical History: Reports: Hx Abdominal Surgery, Hx Bowel Surgery - For Crohn's, Hx Orthopedic Surgery - ORIF to ankle, Hx Tonsillectomy - Immunizations Hx Diphtheria, Pertussis, Tetanus Vaccination: Yes - 2017 Physical Exam - Vital signs Vitals: Temp Pulse Resp BP Pulse Ox 97.8 F 108 H 20 138/85 H 97 04/22/19 12:39 04/22/19 12:39 04/22/19 12:39 04/22/19 12:39 04/22/19 12:39 Course - Vital Signs Vital signs: Temp Pulse Resp BP Pulse Ox 97.8 F 108 H 20 138/85 H 97 04/22/19 12:39 04/22/19 12:39 04/22/19 12:39 04/22/19 12:39 04/22/19 12:39
[2019-04-22 13:27] LABS: ABSOLUTE BASOPHILS # (AUTO) 0.1 10^3/uL (0.0-0.2); ABSOLUTE EOSINOPHILS # (AUTO) 0.1 10^3/uL (0.0-0.6); ABSOLUTE LYMPHOCYTES (AUTO) 0.9 10^3/uL (0.5-4.7); ABSOLUTE MONOCYTES (AUTO) 1.2 10^3/uL (0.1-1.4); ABSOLUTE NEUT (AUTO) 7.4 10^3/uL (1.7-8.2); BASOPHILS % (AUTO) 0.5 % (0-2); EOSINOPHILS % (AUTO) 1.5 % (0-6); HEMATOCRIT 48.3 % (37.9-51.0); HEMOGLOBIN 15.9 g/dL (13.5-17.0); LYMPHOCYTES % (AUTO) 9.5 % (13-45); MEAN CORPUSCULAR HEMOGLOBIN 30.3 pg (27.0-33.4); MEAN CORPUSCULAR VOLUME 92 fl (80-97); MONOCYTES % (AUTO) 12.4 % (3-13); PLATELET COUNT 251 10^3/uL (150-450); RED BLOOD COUNT 5.26 10^6/uL (4.35-5.55); RED CELL DISTRIBUTION WIDTH 16.3 % (11.5-14.0); SEGMENTED NEUTROPHILS % (AUTO) 76.1 % (42-78); TOTAL CELLS COUNTED % (AUTO) 100 %; WHITE BLOOD COUNT 9.8 10^3/uL (4.0-10.5)
[2019-04-22 13:46] LABS: ALANINE AMINOTRANSFERASE 13 U/L (21-72); ALBUMIN 4.8 g/dL (3.5-5.0); ALKALINE PHOSPHATASE 77 U/L (38-126); ANION GAP 12 (5-19); APPEARANCE,URINE SLIGHTLY-CLOUDY; ASPARTATE AMINO TRANSFERASE 27 U/L (17-59); BILIRUBIN,DIRECT 0.4 mg/dL (0.0-0.4); BILIRUBIN,TOTAL 0.5 mg/dL (0.2-1.3); BILIRUBIN,URINE NEGATIVE (NEGATIVE); BLOOD UREA NITROGEN 13 mg/dL (7-20); CALCIUM 10.3 mg/dL (8.4-10.2); CARBON DIOXIDE 20 mmol/L (22-30); CHLORIDE 110 mmol/L (98-107); COLOR,URINE YELLOW; GLUCOSE 112 mg/dL (75-110); GLUCOSE, URINE NEGATIVE (NEGATIVE); KETONES,URINE NEGATIVE (NEGATIVE); LEUKOCYTE ESTERASE,URINE NEGATIVE (NEGATIVE); LIPASE 50.7 U/L (23-300); NITRITE,URINE NEGATIVE (NEGATIVE); POTASSIUM 4.2 mmol/L (3.6-5.0); PROTEIN,URINE 30 mg/dL (NEGATIVE); SODIUM 141.6 mmol/L (137-145); TOTAL PROTEIN 9.4 g/dL (6.3-8.2); URINE SPECIFIC GRAVITY 1.025; UROBILINOGEN,URINE NEGATIVE mg/dL (<2.0)
[2019-04-22] MEDS ORDERED: HYDROMORPHONE HCL INJ/PF 2 MG/ML AMPULE IV ONE (16:00)
[2019-04-22] MEDS ORDERED: METOCLOPRAMIDE HCL INJ/PF 10 MG/2 ML SDV IV ONE (16:01)
--- NOTE | 2019-04-22 16:07 | ER Document Report ---
ED General - General Chief Complaint: Abdominal Pain Stated Complaint: VOMITING Time Seen by Provider: 04/22/19 12:41 Mode of Arrival: Ambulatory Information source: Patient TRAVEL OUTSIDE OF THE [place] IN LAST 30 DAYS: No - HPI Patient complains to provider of: Upper abdominal pain, vomiting, diarrhea Onset: Yesterday - Last night Onset/Duration: Sudden, Persistent Quality of pain: Sharp Severity: Severe Pain Level: 5 Associated symptoms: Diarrhea, Nausea, Vomiting. denies: Chills, Fever Exacerbated by: Denies Relieved by: Denies Similar symptoms previously: No Recently seen / treated by doctor: No Notes: 43-year-old -[place] male coming in today with upper abdominal pain, vomiting, diarrhea. History of Crohn's disease. History of colostomy as well. Patient seeing diarrhea in the colostomy. No blood or mucus. No fevers or shaking chills. Patient relates the pain is focused in the epigastrium in the right upper quadrant. - Related Data Allergies/Adverse Reactions: hydrocodone [Hydrocodone] Allergy (Verified 04/22/19 12:31) Past Medical History - General Information source: Patient - Social History Smoking Status: Current Some Day Smoker Chew tobacco use (# tins/day): No Frequency of alcohol use: None Drug Abuse: None Family History: Reviewed & Not Pertinent, CAD Patient has suicidal ideation: No Patient has homicidal ideation: No Renal/ Medical History: Denies: Hx Peritoneal Dialysis GI Medical History: Reports: Hx Crohn's Disease, Hx Ulcerative Colitis Musculoskeletal Medical History: Reports Hx Musculoskeletal Trauma - Ankle with ORIF and finger Traumatic Medical History: Reports: Hx Fractures - Finger and ankle Past Surgical History: Reports: Hx Abdominal Surgery, Hx Bowel Surgery - For Crohn's, Hx Orthopedic Surgery - ORIF to ankle, Hx Tonsillectomy - Immunizations Hx Diphtheria, Pertussis, Tetanus Vaccination: Yes - 2017 Review of Systems - Review of Systems Notes: Constitutional: No fevers. No chills. EENT: No eye redness. No eye pain. No ear pain. No sore throat. Cardiovascular: No chest pain. No palpitations. Respiratory: No cough. No shortness of breath. No respiratory distress. Gastrointestinal: Positive for abdominal pain. Positive for nausea vomiting and diarrhea Genitourinary: Atraumatic. No lesions. No pain. No discharge. Musculoskeletal: Atraumatic. No swelling. No deformities. Skin: No rash or lesions. Lymphatic: No swollen lymph nodes. Neurologic: No headache. No syncope. Psychiatric: No suicidal or homicidal ideation. Physical Exam - Vital signs Vitals: Temp Pulse Resp BP Pulse Ox 97.8 F 108 H 20 138/85 H 97 04/22/19 12:39 04/22/19 12:39 04/22/19 12:39 04/22/19 12:39 04/22/19 12:39 - Notes Notes: General: Patient looks very uncomfortable. He does NOT, however, look toxic. Cardiac: Well-perfused. Regular rate and rhythm. No murmurs, rubs, or gallops. Pulmonary: No respiratory distress. No cyanosis. Bilateral lung fiels are clear to auscultation. Abdominal: Nondistended abdomen. Bowel sounds present all 4 quadrants. Tender in the epigastrium and right upper quadrant. No guarding or rebound. HEENT: Head is atraumatic. Conjunctivae not reddened. No tearing. PERRL. EOMI. Orbits atraumatic. No periorbital swelling or erythema. Oropharynx is without erythema, swelling, or exudates. Neck: Supple. No adenopathy. No meningismus. Dermatologic: Warm with good turgor. No rash. Atraumatic. Chest: Atraumatic. No chest wall tenderness to palpation. Musculoskeletal: Moves all extremities well. No range of motion deficits. no muscular or joint tenderness. No paraspinal muscle tenderness. no midline spinal tenderness or step-off. Genitourinary: Examination deferred Neurologic: No gross neurologic deficits. Psychiatric: Normal mood. Course - Re-evaluation Re-evalutation: 04/22/19 16:09 Creatinine is slightly elevated compared to previous. Probable dehydration. Will order normal saline bolus to rehydrate. If the ultrasound is negative can probably discharge the patient home 04/22/19 16:10 04/22/19 17:12 IV fluids were ordered. Ultrasound is actually negative. No white count. Findings are suggestive for gastroenteritis. We will send him home with some Wordseyelan and some Synacor. We will start him on an oral challenge now. We will finish the IV fluid infusion and discharge home - Vital Signs Vital signs: Temp Pulse Resp BP Pulse Ox 97.8 F 108 H 20 138/85 H 97 04/22/19 12:39 04/22/19 12:39 04/22/19 12:39 04/22/19 12:39 04/22/19 12:39 - Laboratory Result Diagrams: 04/22/19 13:10 04/22/19 13:10 Laboratory results interpreted by me: 04/22/19 04/22/19 04/22/19 13:10 13:10 13:10 RDW 16.3 H Lymphocytes % 9.5 L Chloride 110 H Carbon Dioxide 20 L Creatinine 1.35 H Est GFR (Non-Af Amer) 57 L Glucose 112 H Calcium 10.3 H ALT 13 L Total Protein 9.4 H Urine Protein 30 H Discharge - Discharge Clinical Impression: Gastroenteritis, Dehydration Condition: Good Disposition: HOME, SELF-CARE Instructions: Clear Liquid Diet ([facility]), Gastroenteritis (adult) ([facility]), Intravenous (IV) Fluids ([facility]), Antinausea Medication ([facility]), Oral Narcotic Medication ([facility]) Additional Instructions: Follow-up with your primary care doctor tomorrow or Friday. If unable to see your doctor and still getting worse please return to the ED Prescriptions: Metoclopramide HCl [Reglan 10 mg Tablet] 1 tab PO Q6HP PRN #12 tablet PRN Reason: Oxycodone HCl/Acetaminophen [Percocet 5-325 mg Tablet] 1 - 2 tab PO Q4H PRN #15 tablet PRN Reason: Forms: Elevated Blood Pressure Referrals: primary care doctor, your [Other] - Follow up as needed
[2019-04-22] MEDS ORDERED: NORMAL SALINE 1000 ML 1,000 ML IV ONE (16:09)
--- NOTE | 2019-04-22 16:32 | RADIOLOGY REPORT (SQ) ---
EXAM DESCRIPTION: U/S ABDOMEN LIMITED W/O DOP COMPLETED DATE/TIME: 04/22/2019 4:04 pm REASON FOR STUDY: ruq abd pain vomiting COMPARISON: 09/13/2016 TECHNIQUE: Dynamic and static grayscale images acquired of the abdomen and recorded on PACS. Nellyo twan selected color Doppler and spectral images recorded. LIMITATIONS: None. FINDINGS: PANCREAS: Poorly seen. No obvious mass in the head or body of the pancreas. LIVER: No masses. Echotexture normal. LIVER VASCULATURE: Normal directional flow of the main portal vein and hepatic veins. GALLBLADDER: No stones. Normal wall thickness. No pericholecystic fluid. ULTRASOUND-DETECTED DUNLAP'S SIGN: Negative. INTRAHEPATIC DUCTS AND COMMON DUCT: CBD and intrahepatic ducts normal caliber. No filling defects. INFERIOR VENA CAVA: Not imaged. AORTA: No aneurysm. RIGHT KIDNEY: Normal size, 10.4 cm. Normal echogenicity. No solid or suspicious masses. No hydroneph rosis. No calcifications. PERITONEAL AND RIGHT PLEURAL SPACE: No ascites or effusions. OTHER: No other significant findings. IMPRESSION: NORMAL RIGHT UPPER QUADRANT ULTRASOUND. TECHNICAL DOCUMENTATION: JOB ID: [id number] [employer]- All Rights Reserved Reading location - IP/workstation name: [email or web address]
== END 2019-04-22 18:50 | disposition home or self-care (01) ==
LOC: ER 12:28
DX: K52.9 Noninfective gastroenteritis and colitis, unspecified (principal); E86.0 Dehydration; R10.10 Upper abdominal pain, unspecified; R11.2 Nausea with vomiting, unspecified; R10.816 Epigastric abdominal tenderness; R10.813 Right lower quadrant abdominal tenderness; F17.200 Nicotine dependence, unspecified, uncomplicated; Z93.3 Colostomy status; Z88.5 Allergy status to narcotic agent
CPT/HCPCS: 99284; 96361; 96374; 96375; 36415; 83690; 85025; 80053; 81001; 76705; S0119; J2765; J1170; J7030

== ENCOUNTER 2019-06-27 13:31 | Emergency (ER) | payer MEDICAID ==
--- NOTE | 2019-06-27 14:38 | ER Document Report ---
HPI - HPI Patient complains to provider of: Right ankle injury Time Seen by Provider: 06/27/19 14:30 Pain Level: 5 Context: Very pleasant 43-year-old male with history of Crohn's disease, ago presents to the emergency department for a right ankle injury he suspects happened yesterday. Patient states that he may have rolled it while walking yesterday and is concerned that his hardware may have been affected. He was seen previously by a provider stated that "the hardware may have come loose". There is no imaging to corroborate this statement. Patient states that he has pain worse when everting the ankle, has pain over the fibula and over the dorsal aspect of the midfoot. Patient can bear weight on it. Past Medical History - Social History Smoking Status: Unknown if Ever Smoked Family History: Reviewed & Not Pertinent, CAD Renal/ Medical History: Denies: Hx Peritoneal Dialysis GI Medical History: Reports: Hx Crohn's Disease, Hx Ulcerative Colitis Musculoskeletal Medical History: Reports Hx Musculoskeletal Trauma - Ankle with ORIF and finger Traumatic Medical History: Reports: Hx Fractures - Finger and ankle Past Surgical History: Reports: Hx Abdominal Surgery, Hx Bowel Surgery - For Crohn's, Hx Orthopedic Surgery - ORIF to ankle, Hx Tonsillectomy - Immunizations Hx Diphtheria, Pertussis, Tetanus Vaccination: Yes - 2018 Vertical Provider Document - CONSTITUTIONAL Notes: PHYSICAL EXAMINATION: Reviewed vital signs and charting by RN GENERAL: Alert, interacts well. No acute distress. HEAD: Normocephalic, atraumatic. EYES: Pupils equal and round. Extraocular movements intact. ENT: Oral mucosa moist, tongue midline. NECK: Full range of motion. Trachea midline. EXTREMITIES: Moves all 4 extremities spontaneously. Mild edema over the lateral malleolus and acute tenderness to palpation over the distal fibula, lateral malleolus, and anterior forefoot, 2+ dorsalis pedis pulse with brisk cap refill, strength 5/5 with dorsi and plantarflexion, patient can move his toes, sensation intact to light touch PSYCH: Normal affect, normal mood. SKIN: Warm, dry, normal turgor. No rashes or lesions noted. - INFECTION CONTROL TRAVEL OUTSIDE OF THE [place] IN LAST 30 DAYS: No Course - Re-evaluation Re-evalutation: 06/27/19 14:38 Overall well-appearing plan to get an x-ray of the right ankle and foot. 06/27/19 16:25 X-ray showed no evidence of acute injury like fracture or dislocation. Hardware present and in place. Plan is for patient to follow-up with his primary when he returns to [place]. At this time we will place him in an ankle stirrup splint and he is stable for discharge. - Vital Signs Vital signs: Temp Pulse Resp BP Pulse Ox 98.0 F 79 16 129/67 H 97 06/27/19 13:38 06/27/19 13:38 06/27/19 13:38 06/27/19 13:38 06/27/19 13:38 Procedures - Immobilization Right Ankle Pre-Proc Neuro Vasc Exam: Normal Immobilizer type: Ankle stirrup Post-Proc Neuro Vasc Exam: Normal Alignment checked and good: Yes Discharge - Discharge Clinical Impression: Right ankle pain Qualifiers: Chronicity: acute Qualified Code(s): M25.571 - Pain in right ankle and joints of right foot Condition: Good Disposition: HOME, SELF-CARE Instructions: Sprained Ankle ([facility]), Ice & Elevation ([facility]), Oral Narcotic Medication ([facility]), Ankle Stirrup Splint ([facility]) Additional Instructions: Your x-ray does not show any acute fracture. You have a sprained ankle. Keep the area elevated, apply ice 20 minutes every 2 hours, and use crutches as needed. You should take ibuprofen 600 mg every 6 hours as needed for pain. Please return if you have worsening pain and swelling, fever greater than 101, you notice spreading redness from the area, or have any other symptoms that are concerning to you. Please follow-up with orthopedic surgery if your symptoms have not improved in the next 2-3 weeks.
[2019-06-27] MEDS ORDERED: OXYCODONE-ACETAMINOPHEN 5-325 MG TABLET PO ONE (14:51)
--- NOTE | 2019-06-27 16:23 | RADIOLOGY REPORT (SQ) ---
EXAM DESCRIPTION: ANKLE RIGHT COMPLETE COMPLETED DATE/TIME: 06/27/2019 3:46 pm REASON FOR STUDY: injury yesterday hx surgery/hardware COMPARISON: None. NUMBER OF VIEWS: Three views. TECHNIQUE: AP, lateral, and oblique radiographic images acquired of the right ankle. LIMITATIONS: None. FINDINGS: MINERALIZATION: Normal. BONES: No acute fracture or dislocation. The ankle mortise is maintained. Postsurgical changes with orthopedic hardware placement at the distal tibia and fibula. Well corticated calcification adjacen t to the medial malleolus is probably secondary to prior trauma. SOFT TISSUES: No soft tissue swelling. No radiopaque foreign body. IMPRESSION: No radiographic evidence for acute fracture at the right ankle. Postsurgical changes. TECHNICAL DOCUMENTATION: JOB ID: [id number] [employer]- All Rights Reserved Reading location - IP/workstation name: [email or web address]
[2019-06-27 17:21] VITALS: BP 115/70
== END 2019-06-27 17:21 | disposition home or self-care (01) ==
LOC: ER 13:31
DX: M25.571 Pain in right ankle and joints of right foot (principal)
CPT/HCPCS: 99283